=== PATIENT | female | born 1985 | race Caucasian/White ===

== ENCOUNTER 2018-11-23 17:23 | Emergency (ER) | payer MEDICAID ==
[~2018-11-23] VITALS: Ht 165.1 cm; Wt 63.6 kg
[~2018-11-23 17:23] MED LIST: FAMO-115 PO; FURO40TA4 PO; NO HOME MEDS; NORCO10T PO; ZOF4T PO
[2018-11-23] MEDS ORDERED: diphenhydrAMINE 50 mg/ml inj IV ONE (18:15)
[2018-11-23] MEDS ORDERED: normal saline 1000ML IV soln IVB ONE ×2 (18:15)
[2018-11-23] MEDS ORDERED: proCHLORperazine 10 MG/2 ml inj IV ONE (18:15)
[2018-11-23 18:37] LABS: BASOPHILS # (AUTO) 0.1 X10'3 (0-0.2); BASOPHILS % (AUTO) 1.4 % (0-1); EOSINOPHILS # (AUTO) 0.2 X10'3 (0-0.9); EOSINOPHILS % (AUTO) 2.5 % (0-6); HEMATOCRIT 34.5 % (35.0-45.0); HEMOGLOBIN 11.5 g/dl (12.0-16.0); LYMPHOCYTES # (AUTO) 0.8 X10'3 (1.1-4.8); LYMPHOCYTES % (AUTO) 13.1 % (21-51); MEAN CORPUSCULAR HEMOGLOBIN 30.3 PG (27.0-31.0); MEAN CORPUSCULAR HGB CONC 33.4 g/dL (33.0-36.5); MEAN CORPUSCULAR VOLUME 90.6 FL (78-98); MEAN PLATELET VOLUME 7.4 FL (7.4-10.4); MONOCYTES # (AUTO) 0.8 X10'3 (0-0.9); NEUTROPHILS # (AUTO) 4.3 X10'3 (1.8-7.7); PLATELET COUNT 235 X10'3 (140-440); RED BLOOD COUNT 3.81 X10'6 (4.20-5.60); RED CELL DISTRIBUTION WIDTH 12.9 % (11.5-14.5); WHITE BLOOD COUNT 6.1 X10'3 (4.5-11.0)
[2018-11-23 18:49] LABS: ALANINE AMINOTRANSFERASE 18 U/L (12-78); ALBUMIN 2.5 G/DL (3.4-5.0); ALBUMIN/GLOBULIN RATIO 0.6 (1.1-1.5); ALKALINE PHOSPHATASE 86 IU/L (46-116); ANION GAP 10 (8-16); ASPARTATE AMINO TRANSFERASE 15 U/L (10-37); BILIRUBIN,TOTAL 0.3 MG/DL (0.1-1.0); BLOOD UREA NITROGEN 9 MG/DL (7-18); BUN/CREATININE RATIO 7.1 (6.6-38.0); CALCIUM 8.1 MG/DL (8.5-10.1); CHLORIDE 102 MMOL/L (99-107); CREATININE 1.27 MG/DL (0.40-0.90); GLUCOSE 136 MG/DL (70-104); POTASSIUM 3.4 MMOL/L (3.5-5.1); SODIUM 135 MMOL/L (135-145); TOTAL CARBON DIOXIDE 22.8 MMOL/L (24-32); TOTAL PROTEIN 6.7 G/DL (6.4-8.2); eGFR 49 ML/MIN
[2018-11-23 19:49] VITALS: BP 115/59
== END 2018-11-23 19:54 | disposition home or self-care (01) ==
LOC: ER 17:30
DX: G43.909 Migraine, unspecified, not intractable, without status migrainosus (principal); R11.10 Vomiting, unspecified; R50.9 Fever, unspecified; N18.9 Chronic kidney disease, unspecified; F12.90 Cannabis use, unspecified, uncomplicated; Z79.899 Other long term (current) drug therapy; Z87.448 Personal history of other diseases of urinary system; Z90.49 Acquired absence of other specified parts of digestive tract
CPT/HCPCS: 36415; 70450; 80053; 85025; 96361; 96374; 96375; 99284; J0780; J1200; J7030; J7050

== ENCOUNTER 2018-12-02 08:58 | Emergency (ER) | payer MEDICAID ==
[~2018-12-02] VITALS: Ht 162.6 cm; Wt 66.2 kg
[2018-12-02 08:59] VITALS: BP 138/91
[2018-12-02] MEDS ORDERED: AMOX-580 PO (10:07)
[2018-12-02] MEDS ORDERED: BUTA-281 PO (10:07)
== END 2018-12-02 10:25 | disposition home or self-care (01) ==
LOC: ER 08:59
DX: R51 Headache (principal); R11.0 Nausea; H92.01 Otalgia, right ear; N18.9 Chronic kidney disease, unspecified; F12.90 Cannabis use, unspecified, uncomplicated; Z90.49 Acquired absence of other specified parts of digestive tract; Z98.890 Other specified postprocedural states; Z79.899 Other long term (current) drug therapy
CPT/HCPCS: 99283

== ENCOUNTER 2019-09-06 10:26 | Emergency (ER) | payer MEDICAID ==
[~2019-09-06] VITALS: Ht 162.6 cm; Wt 64.2 kg
[~2019-09-06 10:26] MED LIST changes: +BUTA-281 PO
[2019-09-06] MEDS ORDERED: ACYC-202 PO (11:28)
[2019-09-06] MEDS ORDERED: NYST1000 PO (11:28)
[2019-09-06 11:37] VITALS: BP 127/83
== END 2019-09-06 11:35 | disposition home or self-care (01) ==
LOC: ER 10:27
DX: K12.0 Recurrent oral aphthae (principal); N18.9 Chronic kidney disease, unspecified; F12.90 Cannabis use, unspecified, uncomplicated; Z90.49 Acquired absence of other specified parts of digestive tract
CPT/HCPCS: 99283

== ENCOUNTER 2019-10-27 07:57 | Emergency (ER) | payer MEDICAID ==
[~2019-10-27] VITALS: Ht 162.6 cm; Wt 59.1 kg
[2019-10-27 08:01] VITALS: BP 152/84
== END 2019-10-27 08:58 | disposition home or self-care (01) ==
LOC: ER 07:58
DX: K12.1 Other forms of stomatitis (principal); N18.9 Chronic kidney disease, unspecified; F31.9 Bipolar disorder, unspecified; F12.90 Cannabis use, unspecified, uncomplicated; Z90.49 Acquired absence of other specified parts of digestive tract; Z98.890 Other specified postprocedural states; Z79.899 Other long term (current) drug therapy
CPT/HCPCS: 99281

== ENCOUNTER 2020-07-16 09:26 | Emergency (ER) | payer MEDICARE, MEDICAID ==
[~2020-07-16] VITALS: Ht 162.6 cm; Wt 68.0 kg
[~2020-07-16 09:26] MED LIST changes: +LIDOcaine 1% W/epiNEPHrine 1:100,000 20ml vial ONE
[2020-07-16 09:28] VITALS: BP 164/87
[2020-07-16] MEDS ORDERED: bupivacaine 0.25%/epinephrine 1:200,000 inj (contains preserv. MDV) IJ ONE (10:05)
[2020-07-16] MEDS ORDERED: TETanus/Pertussis (Acell)/Diphther VAC/PF (Tdap-Adult) 0.5ml syringe IMVAC ONE (10:05)
[2020-07-16] MEDS ORDERED: BUPIVAcaine 0.5% W/EPI /PF 30ml vial IJ ONE (10:15)
== END 2020-07-16 11:39 | disposition home or self-care (01) ==
LOC: ER 09:27
DX: S51.812A Laceration without foreign body of left forearm, initial encounter (principal); F31.9 Bipolar disorder, unspecified; N18.9 Chronic kidney disease, unspecified; F12.90 Cannabis use, unspecified, uncomplicated; Z90.49 Acquired absence of other specified parts of digestive tract; Z98.890 Other specified postprocedural states; Z79.899 Other long term (current) drug therapy; W25.XXXA Contact with sharp glass, initial encounter; Y93.89 Activity, other specified; Y92.89 Other specified places as the place of occurrence of the external cause; Y99.8 Other external cause status
CPT/HCPCS: 12005; 73090; 90471; 90715; 99283

== ENCOUNTER 2020-07-30 12:50 | Emergency (ER) | payer MEDICARE, MEDICAID ==
[~2020-07-30] VITALS: Ht 162.6 cm; Wt 66.6 kg
[~2020-07-30 12:50] MED LIST changes: -LIDOcaine 1% W/epiNEPHrine 1:100,000 20ml vial ONE
[2020-07-30 13:01] VITALS: BP 150/93
== END 2020-07-30 13:40 | disposition home or self-care (01) ==
LOC: ER 12:51
DX: S51.812D Laceration without foreign body of left forearm, subsequent encounter (principal); N18.9 Chronic kidney disease, unspecified; F12.90 Cannabis use, unspecified, uncomplicated; Z48.02 Encounter for removal of sutures; X58.XXXD Exposure to other specified factors, subsequent encounter; Z79.899 Other long term (current) drug therapy; Z90.49 Acquired absence of other specified parts of digestive tract
CPT/HCPCS: 99281

== ENCOUNTER 2021-04-19 13:59 | Emergency (ER) | payer MEDICARE, MEDICAID ==
[~2021-04-19] VITALS: Ht 162.6 cm; Wt 61.0 kg
[2021-04-19 14:16] VITALS: BP 141/80
--- NOTE | 2021-04-19 17:13 | NUR ---
PATIENT HAS 1.5 CM LAC ON LEFT HAND AT THE WEB SPACE BETWEEN THE THUMB AND INDEX FINGER. WOUND IS BEING IRRIGATED/CLEANSED PER TECH.
[2021-04-22] MEDS ORDERED: LIDOcaine 1% 30ml preserv. free vial ONE (09:00)
== END 2021-04-19 18:35 | disposition home or self-care (01) ==
LOC: ER 14:05 → EEVIPCON 14:05 → ER 18:35
DX: S61.412A Laceration without foreign body of left hand, initial encounter (principal); N18.9 Chronic kidney disease, unspecified; F12.10 Cannabis abuse, uncomplicated; Y04.8XXA Assault by other bodily force, initial encounter; Y93.89 Activity, other specified; Y92.89 Other specified places as the place of occurrence of the external cause; Y99.8 Other external cause status
CPT/HCPCS: 12002; 99282; 99283

== ENCOUNTER 2021-05-03 09:50 | Emergency (ER) | payer MEDICARE, MEDICAID ==
[~2021-05-03] VITALS: Ht 162.6 cm; Wt 61.0 kg
[2021-05-03 10:11] VITALS: BP 133/87
== END 2021-05-03 15:18 | disposition left against medical advice (07) ==
LOC: ER 09:50
DX: Z48.00 Encounter for change or removal of nonsurgical wound dressing (principal); Z53.21 Procedure and treatment not carried out due to patient leaving prior to being seen by health care provider

== ENCOUNTER 2021-11-25 08:15 | Emergency (ER) | payer MEDICARE, MEDICAID ==
[~2021-11-25] VITALS: Ht 162.6 cm; Wt 61.4 kg
[2021-11-25 08:18] VITALS: BP 141/88
[2021-11-25] MEDS ORDERED: predniSONE 20 mg tablet PO ONE (10:30)
[2021-11-25] MEDS ORDERED: METH4TAB3 PO (10:31)
== END 2021-11-25 11:25 | disposition home or self-care (01) ==
LOC: ER 08:15
DX: L23.7 Allergic contact dermatitis due to plants, except food (principal); N18.9 Chronic kidney disease, unspecified; F31.9 Bipolar disorder, unspecified; Z79.899 Other long term (current) drug therapy
CPT/HCPCS: 99283; J7512

== ENCOUNTER 2023-08-14 10:55 | Emergency (ER) | payer MEDICARE, MEDICAID ==
[~2023-08-14] VITALS: Ht 163.8 cm; Wt 81.4 kg
[2023-08-14 10:55] VITALS: BP 176/94; PULSE 89; RESP 16; TEMP 98.9; O2SAT 99
[~2023-08-14 10:55] MED LIST changes: +BUTA-245 PO; -BUTA-281 PO; +METH4TAB3 PO
[2023-08-14] MEDS ORDERED: AMOX-580 PO (12:07)
[2023-08-14] MEDS ORDERED: IBUP-1986 PO (12:07)
[2023-08-14] MEDS: amox tr/potassium clavulanate 875/125mg TAB PO ONE (12:14)
== END 2023-08-14 12:25 | disposition home or self-care (01) ==
LOC: ER 10:56
DX: K04.7 Periapical abscess without sinus (principal); N18.9 Chronic kidney disease, unspecified; F31.9 Bipolar disorder, unspecified; Z90.49 Acquired absence of other specified parts of digestive tract
CPT/HCPCS: 99283

== ENCOUNTER 2024-04-23 06:24 | Inpatient (IN) | payer MEDICARE, MEDICAID ==
[2024-04-23] VITALS (11 sets, daily range): BP systolic 126–150; BP diastolic 62–80; PULSE 76–92; RESP 13–27; TEMP 97.7; O2SAT 94–100
[~2024-04-23] VITALS: Ht 162.6 cm; Wt 81.8 kg
[~2024-04-23 06:24] MED LIST changes: +IBUP-1986 PO
[2024-04-23 06:55] LABS: BASOPHILS # (AUTO) 0.1 X10'3 (0-0.2); BASOPHILS % (AUTO) 0.6 % (0-1); EOSINOPHILS # (AUTO) 0.2 X10'3 (0-0.9); EOSINOPHILS % (AUTO) 1.4 % (0-6); HEMATOCRIT 29.8 % (35.0-45.0); LYMPHOCYTES # (AUTO) 1.3 X10'3 (1.1-4.8); LYMPHOCYTES % (AUTO) 10.6 % (21-51); MEAN CORPUSCULAR HEMOGLOBIN 30.8 PG (27.0-31.0); MEAN CORPUSCULAR HGB CONC 33.4 g/dL (33.0-36.5); MEAN CORPUSCULAR VOLUME 92.2 FL (78-98); MEAN PLATELET VOLUME 8.9 FL (7.4-10.4); MONOCYTES # (AUTO) 0.5 X10'3 (0-0.9); MONOCYTES % (AUTO) 4.3 % (2-12); NEUTROPHILS # (AUTO) 10.5 X10'3 (1.8-7.7); NEUTROPHILS % (AUTO) 83.1 % (42-75); PLATELET COUNT 319 X10'3 (140-440); RED BLOOD COUNT 3.23 X10'6 (4.20-5.60); RED CELL DISTRIBUTION WIDTH 14.5 % (11.5-14.5); WHITE BLOOD COUNT 12.7 X10'3 (4.5-11.0)
[2024-04-23] MEDS: labetalol 20mg/4ml (5mg/ml) syringe IV ONE ×3 (07:12→08:39)
[2024-04-23 07:23] LABS: ALANINE AMINOTRANSFERASE 35 U/L (12-78); ALBUMIN 1.4 G/DL (3.4-5.0); ALBUMIN/GLOBULIN RATIO 0.3 (1.1-1.5); ALKALINE PHOSPHATASE 143 IU/L (46-116); ANION GAP 7 (8-16); BILIRUBIN,TOTAL 0.4 MG/DL (0.1-1.0); BLOOD UREA NITROGEN 35 MG/DL (7-18); BUN/CREATININE RATIO 18.8 (10.0-20.0); CALCIUM 8.2 MG/DL (8.5-10.1); CHLORIDE 101 MMOL/L (99-107); CREATININE 1.86 MG/DL (0.40-0.90); GLUCOSE 119 MG/DL (70-104); SODIUM 132 MMOL/L (135-145); TOTAL CARBON DIOXIDE 24.2 MMOL/L (24-32); TOTAL PROTEIN 6.1 G/DL (6.4-8.2); eCRCL 36 ML/MIN; eGFR 30 ML/MIN
[2024-04-23 07:24] LABS: ASPARTATE AMINO TRANSFERASE 45 U/L (10-37); POTASSIUM 5.3 MMOL/L (3.5-5.1); PRO BRAIN NATRIURETIC PEPTIDE 29836 PG/ML (0-125)
[2024-04-23] MEDS: CefTRIAXone 2gm/D5W 50ml BAG 50 ML IV ONE (07:41)
[2024-04-23] MEDS: midazolam 1 mg/ML 2ml injection IV ONE (07:45)
[2024-04-23 07:48] LABS: MAGNESIUM 2.2 MG/DL (1.5-2.4)
[2024-04-23 07:56] LABS: ABG BASE EXCESS -1.4 mmol/L (-2.0-3.0); ABG HCO3 21.6 mmol/L (21.0-28.0); ABG OXYGEN SATURATION 92.3 % (94.0-98.0); ABG PCO2 (T) 29.6 mmHg (32.0-45.0); ABG PH (T) 7.478 (7.350-7.450); ABG PO2 (T) 61.9 mmHg (83.0-108.0); ALLEN'S TEST POSITIVE; FCOHb 0.3 % (0.5-1.5); FHHb 7.7 % (0.0-5.0); FLOW 3 L/min; FMetHb 0.3 % (0.0-1.5); FO2Hb 91.7 % (94.0-98.0); MODE NASAL CANNULA; PATIENT TEMPERATURE 36.5; TOTAL HEMOGLOBIN 10.4 G/dl (12.0-16.0)
[2024-04-23] MEDS ORDERED: rocuronium 10mg/ml inj IV ONE (08:00)
[2024-04-23] MEDS: furosemide 10 MG/1 ML 10ml inj IV ONE (08:03)
[2024-04-23] MEDS ORDERED: nitroPRUSSIDE 0.2mg/mL in NS 100 ML IV SCH (08:25)
[2024-04-23] MEDS: morphine 4 MG/ML inj SYRINge IV ONE (08:32)
[2024-04-23] MEDS: nitroPRUSSIDE (NIPRIDE) (200MCG/ML) 100ML Drip IV SCH (08:36)
[2024-04-23] MEDS ORDERED: acetaminophen 325mg tablet PO PRN (08:40)
[2024-04-23] MEDS: LidoCAINE 2% Topical Jelly 11mL syringe (UROJET) TOP ONE (08:40)
[2024-04-23] MEDS ORDERED: magnesium hydroxide 30ml (MOM) UD suspension PO PRN (08:40)
[2024-04-23] MEDS: LABETALOL IV ONE (08:41)
[2024-04-23] MEDS: NORMAL SALINE IV ONE (08:41)
[2024-04-23] MEDS: heparin, porcine 5000 units/ml vial SQ SCH (17:03)
[2024-04-23] MEDS: metoprolol tartrate 50mg tablet PO SCH (18:22)
[2024-04-23] MEDS: nitroPRUSSIDE 0.2mg/mL in NS 100 ML IV SCH (18:30)
[2024-04-23] MEDS: acetaminophen 325mg tablet PO PRN (19:22)
[2024-04-24] VITALS (23 sets, daily range): BP systolic 136–186; BP diastolic 58–101; PULSE 76–92; RESP 14–22; O2SAT 91–97
[2024-04-24] MEDS: acetaminophen 325mg tablet PO PRN (02:07)
[2024-04-24] MEDS: nitroPRUSSIDE sod inj. 50 MG in dextrose 5%-water 248 ML IV SCH (03:45)
[2024-04-24 06:08] LABS: BASOPHILS # (AUTO) 0.1 X10'3 (0-0.2); BASOPHILS % (AUTO) 0.7 % (0-1); EOSINOPHILS # (AUTO) 0.2 X10'3 (0-0.9); EOSINOPHILS % (AUTO) 1.9 % (0-6); HEMATOCRIT 27.4 % (35.0-45.0); HEMOGLOBIN 9.4 g/dl (12.0-16.0); LYMPHOCYTES # (AUTO) 1.5 X10'3 (1.1-4.8); LYMPHOCYTES % (AUTO) 16.5 % (21-51); MEAN CORPUSCULAR HGB CONC 34.5 g/dL (33.0-36.5); MEAN CORPUSCULAR VOLUME 92.6 FL (78-98); MEAN PLATELET VOLUME 9.2 FL (7.4-10.4); MONOCYTES # (AUTO) 0.5 X10'3 (0-0.9); NEUTROPHILS # (AUTO) 7.1 X10'3 (1.8-7.7); NEUTROPHILS % (AUTO) 75.9 % (42-75); PLATELET COUNT 272 X10'3 (140-440); RED BLOOD COUNT 2.95 X10'6 (4.20-5.60); RED CELL DISTRIBUTION WIDTH 14.3 % (11.5-14.5); WHITE BLOOD COUNT 9.3 X10'3 (4.5-11.0)
[2024-04-24 06:27] LABS: ALANINE AMINOTRANSFERASE 49 U/L (12-78); ALBUMIN 1.2 G/DL (3.4-5.0); ALBUMIN/GLOBULIN RATIO 0.3 (1.1-1.5); ALKALINE PHOSPHATASE 110 IU/L (46-116); ANION GAP 8 (8-16); ASPARTATE AMINO TRANSFERASE 50 U/L (10-37); BILIRUBIN,TOTAL 0.3 MG/DL (0.1-1.0); BLOOD UREA NITROGEN 32 MG/DL (7-18); BUN/CREATININE RATIO 16.4 (10.0-20.0); CALCIUM 7.7 MG/DL (8.5-10.1); CHLORIDE 103 MMOL/L (99-107); CREATININE 1.95 MG/DL (0.40-0.90); GLUCOSE 112 MG/DL (70-104); POTASSIUM 4.3 MMOL/L (3.5-5.1); SODIUM 138 MMOL/L (135-145); TOTAL CARBON DIOXIDE 27.4 MMOL/L (24-32); TOTAL PROTEIN 5.1 G/DL (6.4-8.2); eCRCL 34 ML/MIN; eGFR 29 ML/MIN
[2024-04-24] MEDS ORDERED: PREN1TAB22 PO (08:05)
[2024-04-24] MEDS ORDERED: NIFE-34 PO (08:05)
[2024-04-24] MEDS ORDERED: DOCU-391 PO (08:05)
[2024-04-24] MEDS ORDERED: HYDR-3972 PO (08:05)
[2024-04-24] MEDS ORDERED: LABE100T8 PO (08:05)
[2024-04-24] MEDS: metoprolol tartrate 50mg tablet PO SCH (08:06)
[2024-04-24] MEDS: amLODIPine 5mg tablet PO SCH (08:06)
[2024-04-24 09:30] LABS: PRO BRAIN NATRIURETIC PEPTIDE 21047 PG/ML (0-125)
[2024-04-24] MEDS: metoprolol tartrate 50mg tablet PO ONE (11:30)
[2024-04-24] MEDS: pantoprazole 40mg Tablet.DR PO SCH (11:30)
[2024-04-24] MEDS: furosemide 40mg tablet PO SCH (11:31)
[2024-04-24] MEDS: hydrALAZINE 25 MG tablet PO SCH (11:31)
[2024-04-24] MEDS ORDERED: magnesium sulf-water 2g/50mL 50 ML IV SCH (13:10)
[2024-04-24] MEDS: sacubitril/valsartan 24mg-26mg tablet PO SCH (15:16)
[2024-04-24] MEDS ORDERED: nitroPRUSSIDE sod inj. 50 MG in dextrose 5%-water 248 ML IV SCH (18:20)
[2024-04-24] MEDS: nitroPRUSSIDE 0.2mg/mL in NS 100 ML IV SCH ×2 (18:33→22:59)
[2024-04-24] MEDS: metoprolol succinate 25mg (24-HOUR) SR. Tablet PO SCH (21:48)
[2024-04-24] MEDS: sacubitril/valsartan 24mg-26mg tablet PO ONE (21:49)
[2024-04-24] MEDS: ondansetron/PF 4mg/2ml inj IV PRN (21:59)
[2024-04-24] MEDS: morphine 2 MG/ML inj. syringe IV PRN (21:59)
[2024-04-25] VITALS (23 sets, daily range): BP systolic 144–198; BP diastolic 68–105; PULSE 79–101; RESP 12–22; O2SAT 91–98
[2024-04-25 01:53] LABS: BASOPHILS # (AUTO) 0.1 X10'3 (0-0.2); BASOPHILS % (AUTO) 1.1 % (0-1); EOSINOPHILS # (AUTO) 0.2 X10'3 (0-0.9); EOSINOPHILS % (AUTO) 2.3 % (0-6); HEMATOCRIT 30.2 % (35.0-45.0); HEMOGLOBIN 10.3 g/dl (12.0-16.0); LYMPHOCYTES # (AUTO) 1.9 X10'3 (1.1-4.8); LYMPHOCYTES % (AUTO) 17.9 % (21-51); MEAN CORPUSCULAR HEMOGLOBIN 31.2 PG (27.0-31.0); MEAN CORPUSCULAR VOLUME 91.7 FL (78-98); MEAN PLATELET VOLUME 7.8 FL (7.4-10.4); MONOCYTES # (AUTO) 0.7 X10'3 (0-0.9); MONOCYTES % (AUTO) 6.5 % (2-12); NEUTROPHILS # (AUTO) 7.5 X10'3 (1.8-7.7); NEUTROPHILS % (AUTO) 72.2 % (42-75); PLATELET COUNT 310 X10'3 (140-440); RED BLOOD COUNT 3.29 X10'6 (4.20-5.60); RED CELL DISTRIBUTION WIDTH 14.5 % (11.5-14.5); WHITE BLOOD COUNT 10.4 X10'3 (4.5-11.0)
[2024-04-25 02:12] LABS: ALANINE AMINOTRANSFERASE 48 U/L (12-78); ALBUMIN 1.4 G/DL (3.4-5.0); ALBUMIN/GLOBULIN RATIO 0.3 (1.1-1.5); ALKALINE PHOSPHATASE 124 IU/L (46-116); ANION GAP 6 (8-16); ASPARTATE AMINO TRANSFERASE 32 U/L (10-37); BILIRUBIN,TOTAL 0.4 MG/DL (0.1-1.0); BLOOD UREA NITROGEN 30 MG/DL (7-18); BUN/CREATININE RATIO 14.3 (10.0-20.0); CALCIUM 7.7 MG/DL (8.5-10.1); CHLORIDE 104 MMOL/L (99-107); GLUCOSE 125 MG/DL (70-104); POTASSIUM 3.8 MMOL/L (3.5-5.1); SODIUM 138 MMOL/L (135-145); TOTAL CARBON DIOXIDE 27.9 MMOL/L (24-32); TOTAL PROTEIN 5.6 G/DL (6.4-8.2); eCRCL 32 ML/MIN; eGFR 27 ML/MIN
[2024-04-25] MEDS: morphine 4 MG/ML inj SYRINge IV PRN (03:44)
[2024-04-25] MEDS: magnesium sulf-water 2g/50mL 50 ML IV ONE (07:55)
[2024-04-25] MEDS ORDERED: metoprolol succinate 25mg (24-HOUR) SR. Tablet PO SCH (21:00)
== END 2024-04-25 23:27 | disposition short-term general hospital (02) | DRG 776 ==
LOC: ER 06:25 → ED HOLD 08:48 → CICU 2S 16:20
PROVIDERS: ADMIT Internal Medicine Critical Care Medicine; ATTEND Internal Medicine Critical Care Medicine
DX: O10 Pre-existing hypertension complicating pregnancy, childbirth and the puerperium (principal); J96.01 Acute respiratory failure with hypoxia; I21.A1 Myocardial infarction type 2; I50.21 Acute systolic (congestive) heart failure; O99.325 Drug use complicating the puerperium; I16.1 Hypertensive emergency; I13.0 Hypertensive heart and chronic kidney disease with heart failure and stage 1 through stage 4 chronic kidney disease, or unspecified chronic kidney disease; O99.43 Diseases of the circulatory system complicating the puerperium; E87.1 Hypo-osmolality and hyponatremia; N18.4 Chronic kidney disease, stage 4 (severe); J98.4 Other disorders of lung; O99.345 Other mental disorders complicating the puerperium; O16.5 Unspecified maternal hypertension, complicating the puerperium; F12.90 Cannabis use, unspecified, uncomplicated; O90.81 Anemia of the puerperium; O99.53 Diseases of the respiratory system complicating the puerperium; D64.89 Other specified anemias; O99.285 Endocrine, nutritional and metabolic diseases complicating the puerperium; F31.9 Bipolar disorder, unspecified; E87.5 Hyperkalemia; E83.51 Hypocalcemia; Z90.49 Acquired absence of other specified parts of digestive tract
CPT/HCPCS: 36415; 36600; 71045; 80053; 82803; 83735; 83880; 84145; 84484; 85018; 85025; 87081; 87502; 87503; 93005; 93306; 93308; 94660; 94760; 96365; 96375; 99285; A4615; A6250; A6258; A6449; C1758; G0378; J0696; J1644; J1940; J2250; J2270; J2405; J3490; J7050

== ENCOUNTER 2024-06-17 20:54 | Emergency (ER) | payer MEDICARE, MEDICAID ==
[~2024-06-17] VITALS: Ht 162.6 cm; Wt 68.2 kg
[~2024-06-17 20:54] MED LIST changes: -BUTA-245 PO; +DOCU-391 PO; -FAMO-115 PO; -FURO40TA4 PO; +HYDR-3972 PO; -IBUP-1986 PO; +LABE100T8 PO; -METH4TAB3 PO; +NIFE-34 PO; -NO HOME MEDS; -NORCO10T PO; +PREN1TAB22 PO; -ZOF4T PO
[2024-06-17 21:36] LABS: BASOPHILS # (AUTO) 0.1 X10'3 (0-0.2); BASOPHILS % (AUTO) 0.9 % (0-1); EOSINOPHILS % (AUTO) 0.2 % (0-6); HEMATOCRIT 27.7 % (35.0-45.0); HEMOGLOBIN 8.9 g/dl (12.0-16.0); LYMPHOCYTES # (AUTO) 1.2 X10'3 (1.1-4.8); LYMPHOCYTES % (AUTO) 17.2 % (21-51); MEAN CORPUSCULAR HEMOGLOBIN 27.5 PG (27.0-31.0); MEAN CORPUSCULAR HGB CONC 32.1 g/dL (33.0-36.5); MEAN CORPUSCULAR VOLUME 85.8 FL (78-98); MEAN PLATELET VOLUME 7.7 FL (7.4-10.4); MONOCYTES # (AUTO) 0.4 X10'3 (0-0.9); MONOCYTES % (AUTO) 6.1 % (2-12); NEUTROPHILS # (AUTO) 5.1 X10'3 (1.8-7.7); NEUTROPHILS % (AUTO) 75.6 % (42-75); PLATELET COUNT 359 X10'3 (140-440); RED BLOOD COUNT 3.23 X10'6 (4.20-5.60); RED CELL DISTRIBUTION WIDTH 16.1 % (11.5-14.5); WHITE BLOOD COUNT 6.8 X10'3 (4.5-11.0)
[2024-06-17 21:54] LABS: ALANINE AMINOTRANSFERASE 16 U/L (12-78); ALBUMIN 3.3 G/DL (3.4-5.0); ALBUMIN/GLOBULIN RATIO 0.8 (1.1-1.5); ALKALINE PHOSPHATASE 70 IU/L (46-116); ANION GAP 11 (8-16); ASPARTATE AMINO TRANSFERASE 15 U/L (10-37); BILIRUBIN,TOTAL 0.5 MG/DL (0.1-1.0); BLOOD UREA NITROGEN 17 MG/DL (7-18); BUN/CREATININE RATIO 8.9 (10.0-20.0); CHLORIDE 103 MMOL/L (99-107); CREATININE 1.91 MG/DL (0.40-0.90); GLUCOSE 104 MG/DL (70-104); POTASSIUM 3.4 MMOL/L (3.5-5.1); SODIUM 135 MMOL/L (135-145); TOTAL PROTEIN 7.4 G/DL (6.4-8.2); eCRCL 34 ML/MIN; eGFR 29 ML/MIN
[2024-06-17 22:01] LABS: PRO BRAIN NATRIURETIC PEPTIDE 3351 PG/ML (0-125)
[2024-06-17] MEDS: hydrALAZINE 25 MG tablet PO STA (22:26)
[2024-06-17] MEDS: LORazepam 0.5 MG tablet PO STA (22:27)
[2024-06-17] MEDS: potassium Cl 20 mEq SR tablet PO STA (22:27)
[2024-06-17 23:10] VITALS: BP 147/67; PULSE 96; RESP 15; O2SAT 98
[2024-06-17 23:58] VITALS: TEMP 98.3
== END 2024-06-18 00:46 | disposition home or self-care (01) ==
LOC: ER 20:55
DX: I12.9 Hypertensive chronic kidney disease with stage 1 through stage 4 chronic kidney disease, or unspecified chronic kidney disease (principal); N18.9 Chronic kidney disease, unspecified; F12.90 Cannabis use, unspecified, uncomplicated; F31.9 Bipolar disorder, unspecified; Z88.8 Allergy status to other drugs, medicaments and biological substances; Z90.49 Acquired absence of other specified parts of digestive tract; Z79.899 Other long term (current) drug therapy
CPT/HCPCS: 36415; 71045; 80053; 83880; 84484; 85025; 93005; 99285

== ENCOUNTER 2024-06-24 15:22 | Inpatient (IN) | payer MEDICARE, MEDICAID ==
[~2024-06-24] VITALS: Ht 162.6 cm; Wt 68.2 kg
[2024-06-24 16:56] LABS: BASOPHILS # (AUTO) 0.1 X10'3 (0-0.2); BASOPHILS % (AUTO) 0.7 % (0-1); EOSINOPHILS % (AUTO) 0.2 % (0-6); HEMATOCRIT 30.9 % (35.0-45.0); HEMOGLOBIN 10.4 g/dl (12.0-16.0); LYMPHOCYTES # (AUTO) 1.2 X10'3 (1.1-4.8); LYMPHOCYTES % (AUTO) 11.8 % (21-51); MEAN CORPUSCULAR HEMOGLOBIN 28.4 PG (27.0-31.0); MEAN CORPUSCULAR HGB CONC 33.6 g/dL (33.0-36.5); MEAN CORPUSCULAR VOLUME 84.6 FL (78-98); MEAN PLATELET VOLUME 7.4 FL (7.4-10.4); MONOCYTES # (AUTO) 0.4 X10'3 (0-0.9); MONOCYTES % (AUTO) 3.9 % (2-12); NEUTROPHILS # (AUTO) 8.3 X10'3 (1.8-7.7); NEUTROPHILS % (AUTO) 83.4 % (42-75); PLATELET COUNT 468 X10'3 (140-440); RED BLOOD COUNT 3.65 X10'6 (4.20-5.60); RED CELL DISTRIBUTION WIDTH 17.4 % (11.5-14.5)
[2024-06-24 17:06] LABS: ALANINE AMINOTRANSFERASE 15 U/L (12-78); ALBUMIN 3.5 G/DL (3.4-5.0); ALBUMIN/GLOBULIN RATIO 0.8 (1.1-1.5); ALKALINE PHOSPHATASE 85 IU/L (46-116); ANION GAP 11 (8-16); ASPARTATE AMINO TRANSFERASE 15 U/L (10-37); BILIRUBIN,TOTAL 0.4 MG/DL (0.1-1.0); BLOOD UREA NITROGEN 17 MG/DL (7-18); BUN/CREATININE RATIO 9.2 (10.0-20.0); CALCIUM 9.4 MG/DL (8.5-10.1); CHLORIDE 102 MMOL/L (99-107); CREATININE 1.84 MG/DL (0.40-0.90); GLUCOSE 103 MG/DL (70-104); SODIUM 135 MMOL/L (135-145); TOTAL CARBON DIOXIDE 21.7 MMOL/L (24-32); TOTAL PROTEIN 7.9 G/DL (6.4-8.2); eCRCL 36 ML/MIN; eGFR 31 ML/MIN
[2024-06-24 17:13] LABS: PRO BRAIN NATRIURETIC PEPTIDE 1615 PG/ML (0-125)
[2024-06-24] MEDS ORDERED: hyDRALAzine 10mg tablet PO SCH (21:30)
[2024-06-24] MEDS: hydrALAZINE 25 MG tablet PO SCH (23:27)
[2024-06-25] VITALS (7 sets, daily range): BP systolic 121–177; BP diastolic 67–89; PULSE 86–106; RESP 16–18; TEMP 96–98.3; O2SAT 96–100
[2024-06-25] MEDS ORDERED: magnesium hydroxide 30ml (MOM) UD suspension PO PRN
[2024-06-25] MEDS ORDERED: magnesium sulf-water 2g/50mL 50 ML IV PRN
[2024-06-25] MEDS ORDERED: magnesium Cl slow-release 64mg tablet PO PRN
[2024-06-25] MEDS ORDERED: acetaminophen 325mg tablet PO PRN
[2024-06-25] MEDS ORDERED: mag hydrox/Alum hydrox/simeth 30ml oral suspension PO PRN
[2024-06-25] MEDS ORDERED: potassium Cl 40MEQ/1/2NS 520ml 520 ML IV PRN
[2024-06-25] MEDS ORDERED: potassium Cl 20 mEq SR tablet PO PRN
[2024-06-25] MEDS ORDERED: ondansetron/PF 4mg/2ml inj IV PRN
[2024-06-25] MEDS ORDERED: magnesium sulf-water 4G/100mL 100 ML IV PRN
[2024-06-25] MEDS ORDERED: furosemide 10 MG/1 ML 10ml inj IV SCH (00:10)
[2024-06-25] MEDS: isosorbide mononitrate 30mg tab.SR.24H PO ONE (00:10)
[2024-06-25] MEDS: LORazepam 1 MG tablet PO ONE (01:21)
[2024-06-25] MEDS: NIFEdipine XL 30mg tablet PO ONE (01:22)
[2024-06-25 01:31] LABS: BILIRUBIN,URINE NEGATIVE (Neg); CLARITY,URINE CLEAR (Clear); COLOR,URINE YELLOW (Yellow); GLUCOSE, URINE NEGATIVE (Neg); KETONES,URINE NEGATIVE (Neg); LEUKOCYTE ESTERASE ,URINE NEGATIVE (Neg); NITRITES, URINE NEGATIVE (Neg); OCCULT BLOOD,URINE NEGATIVE (Neg); PROTEIN,URINE >=300 mg/dl (Neg); UROBILINOGEN,URINE 0.2 E.U/dL (0.2-1.0)
[2024-06-25 01:32] LABS: URINE HCG NEGATIVE (NEG)
[2024-06-25 01:44] LABS: UA COLLECTION TYPE CLN CATCH MIDSTREAM; URINE AMPHETAMINE SCREEN NEGATIVE (Neg); URINE BARBITUATE SCREEN NEGATIVE (Neg); URINE BENZODIAZEPINES SCREEN NEGATIVE (Neg); URINE CANNABINOID SCREEN POSITIVE (Neg); URINE COCAINE SCREEN NEGATIVE (Neg); URINE METHADONE SCREEN NEGATIVE (Neg); URINE OPIATE SCREEN NEGATIVE (Neg); URINE PHENCYCLIDINE SCREEN NEGATIVE (Neg)
[2024-06-25 01:46] LABS: BACTERIA,URINE FEW /HPF (Neg); RBC,URINE NONE SEEN /HPF (0-2); WBC,URINE 0-4 /HPF (0-4)
[2024-06-25 01:47] LABS: CELLULAR CAST 0-4 /LPF (NEGATIVE); MUCUS STRANDS NONE SEEN /LPF (Neg); SQUAMOUS EPITHELIAL CELL,UR MODERATE /LPF (FEW)
[2024-06-25] MEDS: LORazepam 0.5 MG tablet PO PRN (02:37)
[2024-06-25] MEDS ORDERED: NIFE-128 PO (03:49)
[2024-06-25] MEDS ORDERED: RIVA20TA PO (03:49)
[2024-06-25] MEDS ORDERED: NIFE60TA2 PO (03:49)
[2024-06-25] MEDS ORDERED: HYDR100T12 PO (03:49)
[2024-06-25] MEDS ORDERED: ISOS120T13 PO (03:49)
[2024-06-25] MEDS ORDERED: LORazepam 0.5 MG tablet PO PRN (06:15)
[2024-06-25] MEDS ORDERED: rivaroxaban 15mg tablet PO SCH (07:30)
[2024-06-25 07:37] LABS: BASOPHILS # (AUTO) 0.1 X10'3 (0-0.2); EOSINOPHILS # (AUTO) 0.1 X10'3 (0-0.9); EOSINOPHILS % (AUTO) 1.5 % (0-6); HEMOGLOBIN 9.3 g/dl (12.0-16.0); LYMPHOCYTES # (AUTO) 1.7 X10'3 (1.1-4.8); LYMPHOCYTES % (AUTO) 22.1 % (21-51); MEAN CORPUSCULAR HGB CONC 33.4 g/dL (33.0-36.5); MONOCYTES # (AUTO) 0.5 X10'3 (0-0.9); MONOCYTES % (AUTO) 7.2 % (2-12); NEUTROPHILS # (AUTO) 5.1 X10'3 (1.8-7.7); NEUTROPHILS % (AUTO) 68.2 % (42-75); PLATELET COUNT 365 X10'3 (140-440); RED BLOOD COUNT 3.33 X10'6 (4.20-5.60); RED CELL DISTRIBUTION WIDTH 17.5 % (11.5-14.5); WHITE BLOOD COUNT 7.5 X10'3 (4.5-11.0)
[2024-06-25] MEDS ORDERED: isosorbide mononitrate 30mg tab.SR.24H PO ONE (08:00)
[2024-06-25] MEDS: docusate sod 100mg capsule PO SCH (08:00)
[2024-06-25] MEDS: K and/or MAG REPLACEMENT MC SCH (08:00)
[2024-06-25 08:17] LABS: ALANINE AMINOTRANSFERASE 14 U/L (12-78); ALBUMIN/GLOBULIN RATIO 0.7 (1.1-1.5); ALKALINE PHOSPHATASE 70 IU/L (46-116); ANION GAP 11 (8-16); ASPARTATE AMINO TRANSFERASE 13 U/L (10-37); BILIRUBIN,TOTAL 0.5 MG/DL (0.1-1.0); BLOOD UREA NITROGEN 15 MG/DL (7-18); BUN/CREATININE RATIO 8.4 (10.0-20.0); CALCIUM 8.8 MG/DL (8.5-10.1); CHLORIDE 101 MMOL/L (99-107); CHOL/HDL RATIO 5.2 (0.00-4.99); CHOLESTEROL 251 MG/DL (0-200); CREATININE 1.79 MG/DL (0.40-0.90); GLUCOSE 103 MG/DL (70-104); HDL CHOLESTEROL 48 MG/DL (35-60); LDL CHOLESTEROL 165 MG/DL (50-100); MAGNESIUM 1.9 MG/DL (1.5-2.4); POTASSIUM 3.8 MMOL/L (3.5-5.1); SODIUM 135 MMOL/L (135-145); THYROID STIMULATING HORMONE 3.27 ulU/ml (0.34-4.50); TOTAL CARBON DIOXIDE 23.4 MMOL/L (24-32); TOTAL PROTEIN 7.1 G/DL (6.4-8.2); TRIGLYCERIDES 192 MG/DL (20-135); eCRCL 37 ML/MIN; eGFR 32 ML/MIN
[2024-06-25] MEDS: hydrALAZINE 25 MG tablet PO SCH (08:38)
[2024-06-25] MEDS: NIFEdipine XL 30mg tablet PO SCH (08:39)
[2024-06-25] MEDS: furosemide 10 MG/1 ML 10ml inj IV SCH (08:41)
[2024-06-25] MEDS: isosorbide mononitrate 30mg tab.SR.24H PO SCH (08:54)
[2024-06-25 10:18] LABS: HEMOGLOBIN A1C 5.1 % (4.5-6.2)
[2024-06-25] MEDS: rivaroxaban 20mg tablet PO SCH (20:05)
[2024-06-26] VITALS (7 sets, daily range): BP systolic 143–162; BP diastolic 63–88; PULSE 89–100; RESP 16–18; TEMP 97–98.3; O2SAT 96–100
[2024-06-26 06:37] LABS: BASOPHILS # (AUTO) 0.1 X10'3 (0-0.2); BASOPHILS % (AUTO) 1.2 % (0-1); EOSINOPHILS # (AUTO) 0.2 X10'3 (0-0.9); HEMOGLOBIN 9.6 g/dl (12.0-16.0); LYMPHOCYTES # (AUTO) 2.2 X10'3 (1.1-4.8); MEAN CORPUSCULAR HEMOGLOBIN 27.9 PG (27.0-31.0); MEAN CORPUSCULAR VOLUME 84.7 FL (78-98); MEAN PLATELET VOLUME 7.1 FL (7.4-10.4); MONOCYTES # (AUTO) 0.5 X10'3 (0-0.9); MONOCYTES % (AUTO) 8.3 % (2-12); NEUTROPHILS # (AUTO) 3.4 X10'3 (1.8-7.7); NEUTROPHILS % (AUTO) 53.5 % (42-75); PLATELET COUNT 380 X10'3 (140-440); RED BLOOD COUNT 3.42 X10'6 (4.20-5.60); RED CELL DISTRIBUTION WIDTH 17.8 % (11.5-14.5); WHITE BLOOD COUNT 6.4 X10'3 (4.5-11.0)
[2024-06-26 07:38] LABS: ALANINE AMINOTRANSFERASE 15 U/L (12-78); ALBUMIN/GLOBULIN RATIO 0.8 (1.1-1.5); ALKALINE PHOSPHATASE 70 IU/L (46-116); ANION GAP 10 (8-16); ASPARTATE AMINO TRANSFERASE 11 U/L (10-37); BILIRUBIN,TOTAL 0.3 MG/DL (0.1-1.0); BLOOD UREA NITROGEN 24 MG/DL (7-18); BUN/CREATININE RATIO 12.1 (10.0-20.0); CALCIUM 8.9 MG/DL (8.5-10.1); CHLORIDE 104 MMOL/L (99-107); CREATININE 1.98 MG/DL (0.40-0.90); GLUCOSE 93 MG/DL (70-104); POTASSIUM 3.8 MMOL/L (3.5-5.1); SODIUM 139 MMOL/L (135-145); TOTAL PROTEIN 6.9 G/DL (6.4-8.2); eCRCL 33 ML/MIN; eGFR 28 ML/MIN
[2024-06-26] MEDS ORDERED: furosemide 20 MG/2 ML vial IV SCH (12:23)
[2024-06-26] MEDS: LORazepam 0.5 MG tablet PO PRN (15:44)
[2024-06-26] MEDS: isosorbide dinitrate 30mg tablet PO SCH (21:40)
[2024-06-26] MEDS: LORazepam 1 MG tablet PO ONE (22:42)
[2024-06-27 02:00] VITALS: BP 144/78; PULSE 90; RESP 16; TEMP 98.4; O2SAT 96
[2024-06-27 06:37] LABS: BASOPHILS # (AUTO) 0.1 X10'3 (0-0.2); BASOPHILS % (AUTO) 1.3 % (0-1); EOSINOPHILS # (AUTO) 0.1 X10'3 (0-0.9); EOSINOPHILS % (AUTO) 2.4 % (0-6); HEMATOCRIT 28.6 % (35.0-45.0); HEMOGLOBIN 9.4 g/dl (12.0-16.0); LYMPHOCYTES # (AUTO) 1.8 X10'3 (1.1-4.8); LYMPHOCYTES % (AUTO) 28.4 % (21-51); MEAN CORPUSCULAR HEMOGLOBIN 27.9 PG (27.0-31.0); MEAN CORPUSCULAR VOLUME 84.5 FL (78-98); MONOCYTES # (AUTO) 0.6 X10'3 (0-0.9); MONOCYTES % (AUTO) 9.6 % (2-12); NEUTROPHILS # (AUTO) 3.7 X10'3 (1.8-7.7); NEUTROPHILS % (AUTO) 58.3 % (42-75); PLATELET COUNT 352 X10'3 (140-440); RED BLOOD COUNT 3.38 X10'6 (4.20-5.60); RED CELL DISTRIBUTION WIDTH 17.2 % (11.5-14.5); WHITE BLOOD COUNT 6.3 X10'3 (4.5-11.0)
[2024-06-27 06:49] LABS: ALANINE AMINOTRANSFERASE 12 U/L (12-78); ALBUMIN 2.9 G/DL (3.4-5.0); ALBUMIN/GLOBULIN RATIO 0.8 (1.1-1.5); ALKALINE PHOSPHATASE 66 IU/L (46-116); ANION GAP 9 (8-16); ASPARTATE AMINO TRANSFERASE 14 U/L (10-37); BILIRUBIN,TOTAL 0.4 MG/DL (0.1-1.0); BLOOD UREA NITROGEN 24 MG/DL (7-18); BUN/CREATININE RATIO 11.5 (10.0-20.0); CALCIUM 8.7 MG/DL (8.5-10.1); CHLORIDE 102 MMOL/L (99-107); CREATININE 2.08 MG/DL (0.40-0.90); GLUCOSE 93 MG/DL (70-104); MAGNESIUM 1.7 MG/DL (1.5-2.4); POTASSIUM 3.4 MMOL/L (3.5-5.1); SODIUM 135 MMOL/L (135-145); TOTAL CARBON DIOXIDE 23.7 MMOL/L (24-32); TOTAL PROTEIN 6.7 G/DL (6.4-8.2); eCRCL 32 ML/MIN; eGFR 27 ML/MIN
[2024-06-27 07:00] VITALS: BP 142/87; PULSE 81; RESP 17; TEMP 96.7; O2SAT 99
[2024-06-27] MEDS: potassium Cl 20 mEq SR tablet PO PRN (09:02)
[2024-06-27] MEDS ORDERED: LORA-269 PO (10:25)
[2024-06-27] MEDS ORDERED: ISOS30TA10 PO (10:37)
[2024-06-27 11:00] VITALS: BP 130/70; PULSE 100; RESP 18; TEMP 98.2; O2SAT 96
[2024-06-27 12:15] VITALS: BP_SYST 130; PULSE 100
[2024-06-27] MEDS: LORazepam 0.5 MG tablet PO PRN (14:42)
== END 2024-06-27 15:40 | disposition home health service (06) | DRG 291 ==
LOC: ER 15:23 → ED HOLD 06-25 00:01 → PCU 3S 06-25 08:05
PROVIDERS: ADMIT Internal Medicine Sleep Medicine; ATTEND Internal Medicine
DX: I13.0 Hypertensive heart and chronic kidney disease with heart failure and stage 1 through stage 4 chronic kidney disease, or unspecified chronic kidney disease (principal); I50.23 Acute on chronic systolic (congestive) heart failure; N17.9 Acute kidney failure, unspecified; I35.1 Nonrheumatic aortic (valve) insufficiency; N18.32 Chronic kidney disease, stage 3b; I20.9 Angina pectoris, unspecified; E78.5 Hyperlipidemia, unspecified; D64.9 Anemia, unspecified; Z79.01 Long term (current) use of anticoagulants; Z79.899 Other long term (current) drug therapy; Z90.49 Acquired absence of other specified parts of digestive tract; Z86.711 Personal history of pulmonary embolism; Z88.8 Allergy status to other drugs, medicaments and biological substances
CPT/HCPCS: 36415; 71045; 80053; 80061; 80305; 81001; 81025; 83036; 83735; 83880; 84443; 84484; 85025; 85651; 87081; 93005; 93308; 99285; A6258; C1758; G0378; J1940

== ENCOUNTER 2024-07-06 10:47 | Emergency (ER) | payer MEDICARE, MEDICAID ==
[~2024-07-06] VITALS: Ht 162.6 cm; Wt 68.2 kg
[~2024-07-06 10:47] MED LIST changes: -DOCU-391 PO; -HYDR-3972 PO; +HYDR100T12 PO; +ISOS30TA10 PO; -LABE100T8 PO; +LORA-269 PO; +NIFE-128 PO; -NIFE-34 PO; +NIFE60TA2 PO; +RIVA20TA PO
[2024-07-06 11:00] VITALS: TEMP 98.2
[2024-07-06 12:07] LABS: BASOPHILS # (AUTO) 0.1 X10'3 (0-0.2); BASOPHILS % (AUTO) 0.6 % (0-1); EOSINOPHILS % (AUTO) 0.4 % (0-6); HEMATOCRIT 34.6 % (35.0-45.0); HEMOGLOBIN 11.1 g/dl (12.0-16.0); LYMPHOCYTES # (AUTO) 1.3 X10'3 (1.1-4.8); LYMPHOCYTES % (AUTO) 14.7 % (21-51); MEAN CORPUSCULAR HEMOGLOBIN 26.9 PG (27.0-31.0); MEAN CORPUSCULAR VOLUME 84.1 FL (78-98); MEAN PLATELET VOLUME 7.5 FL (7.4-10.4); MONOCYTES # (AUTO) 0.4 X10'3 (0-0.9); MONOCYTES % (AUTO) 4.9 % (2-12); NEUTROPHILS # (AUTO) 7.2 X10'3 (1.8-7.7); NEUTROPHILS % (AUTO) 79.4 % (42-75); PLATELET COUNT 410 X10'3 (140-440); RED BLOOD COUNT 4.12 X10'6 (4.20-5.60); RED CELL DISTRIBUTION WIDTH 17.3 % (11.5-14.5); WHITE BLOOD COUNT 9.1 X10'3 (4.5-11.0)
[2024-07-06] MEDS: LORazepam 1 MG tablet PO ONE ×2 (12:10→12:41)
[2024-07-06 12:16] LABS: ALANINE AMINOTRANSFERASE 17 U/L (12-78); ALBUMIN 3.7 G/DL (3.4-5.0); ALBUMIN/GLOBULIN RATIO 0.9 (1.1-1.5); ALKALINE PHOSPHATASE 79 IU/L (46-116); ANION GAP 14 (8-16); ASPARTATE AMINO TRANSFERASE 13 U/L (10-37); BILIRUBIN,TOTAL 0.3 MG/DL (0.1-1.0); BLOOD UREA NITROGEN 16 MG/DL (7-18); BUN/CREATININE RATIO 9.8 (10.0-20.0); CALCIUM 9.2 MG/DL (8.5-10.1); CHLORIDE 105 MMOL/L (99-107); CREATININE 1.64 MG/DL (0.40-0.90); GLUCOSE 104 MG/DL (70-104); POTASSIUM 3.5 MMOL/L (3.5-5.1); SODIUM 138 MMOL/L (135-145); TOTAL CARBON DIOXIDE 18.8 MMOL/L (24-32); TOTAL PROTEIN 7.7 G/DL (6.4-8.2); eCRCL 40 ML/MIN; eGFR 35 ML/MIN
[2024-07-06 12:24] LABS: PRO BRAIN NATRIURETIC PEPTIDE 2759 PG/ML (0-125)
[2024-07-06] MEDS ORDERED: LORA-269 PO ×2 (15:39→16:20)
[2024-07-06 16:15] VITALS: BP 149/86; PULSE 104; RESP 18; O2SAT 98
== END 2024-07-06 16:29 | disposition home or self-care (01) ==
LOC: ER 10:48
DX: R00.2 Palpitations (principal); F41.9 Anxiety disorder, unspecified; I50.22 Chronic systolic (congestive) heart failure; N18.9 Chronic kidney disease, unspecified; F31.9 Bipolar disorder, unspecified; F12.90 Cannabis use, unspecified, uncomplicated; Z88.8 Allergy status to other drugs, medicaments and biological substances; Z79.899 Other long term (current) drug therapy; Z98.890 Other specified postprocedural states; Z79.01 Long term (current) use of anticoagulants; Z90.49 Acquired absence of other specified parts of digestive tract
CPT/HCPCS: 36415; 71045; 80053; 83880; 84484; 85025; 93005; 99285

== ENCOUNTER 2024-08-03 02:16 | Emergency (ER) | payer MEDICARE, MEDICAID ==
[~2024-08-03] VITALS: Ht 162.6 cm; Wt 70.5 kg
[2024-08-03 03:10] LABS: BASOPHILS # (AUTO) 0.1 X10'3 (0-0.2); BASOPHILS % (AUTO) 0.8 % (0-1); EOSINOPHILS # (AUTO) 0.1 X10'3 (0-0.9); EOSINOPHILS % (AUTO) 1.1 % (0-6); LYMPHOCYTES # (AUTO) 1.2 X10'3 (1.1-4.8); LYMPHOCYTES % (AUTO) 11.4 % (21-51); MEAN CORPUSCULAR HEMOGLOBIN 27.1 PG (27.0-31.0); MEAN CORPUSCULAR VOLUME 84.5 FL (78-98); MEAN PLATELET VOLUME 7.4 FL (7.4-10.4); MONOCYTES # (AUTO) 0.8 X10'3 (0-0.9); MONOCYTES % (AUTO) 7.4 % (2-12); NEUTROPHILS # (AUTO) 8.7 X10'3 (1.8-7.7); NEUTROPHILS % (AUTO) 79.3 % (42-75); PLATELET COUNT 438 X10'3 (140-440); RED BLOOD COUNT 2.22 X10'6 (4.20-5.60); RED CELL DISTRIBUTION WIDTH 18.1 % (11.5-14.5); WHITE BLOOD COUNT 10.9 X10'3 (4.5-11.0)
[2024-08-03 03:20] LABS: HEMATOCRIT 18.8 % (35.0-45.0)
[2024-08-03 03:36] LABS: BLOOD UREA NITROGEN 39 MG/DL (7-18); BUN/CREATININE RATIO 19.7 (10.0-20.0); CREATININE 1.98 MG/DL (0.40-0.90); GLUCOSE 108 MG/DL (70-104); POTASSIUM 3.8 MMOL/L (3.5-5.1); SODIUM 139 MMOL/L (135-145)
[2024-08-03 03:37] LABS: ALANINE AMINOTRANSFERASE 28 U/L (12-78); ALBUMIN/GLOBULIN RATIO 0.5 (1.1-1.5); ALKALINE PHOSPHATASE 99 IU/L (46-116); ASPARTATE AMINO TRANSFERASE 13 U/L (10-37); BILIRUBIN,TOTAL 0.3 MG/DL (0.1-1.0); CALCIUM 8.3 MG/DL (8.5-10.1); eCRCL 33 ML/MIN; eGFR 28 ML/MIN
[2024-08-03] MEDS: LORazepam 0.5 MG tablet PO ONE (03:39)
[2024-08-03] MEDS: furosemide 10 MG/1 ML 10ml inj IV ONE (03:39)
[2024-08-03 03:44] LABS: PRO BRAIN NATRIURETIC PEPTIDE 12180 PG/ML (0-125)
[2024-08-03 03:45] LABS: ANION GAP 10 (8-16); CHLORIDE 105 MMOL/L (99-107)
[2024-08-03] MEDS ORDERED: iohexol 350MG/ML 100ml bottle IV ONE (04:22)
[2024-08-03 05:59] VITALS: BP 128/91; PULSE 84; RESP 21; TEMP 97
[2024-08-03 06:14] VITALS: BP 118/82; PULSE 83; RESP 23; TEMP 97.4
[2024-08-03 07:14] VITALS: BP 139/91; PULSE 81; RESP 16; TEMP 98
[2024-08-03 08:14] VITALS: BP 135/98; PULSE 88; RESP 22; TEMP 99.2
[2024-08-03] MEDS ORDERED: ASPI-1144 PO (10:01)
[2024-08-03] MEDS ORDERED: FURO40TA4 PO (10:01)
[2024-08-03] MEDS ORDERED: MAGN400T52 PO (10:01)
[2024-08-03] MEDS ORDERED: LABE200T8 PO (10:01)
[2024-08-03] MEDS ORDERED: POTA-206 PO (10:01)
[2024-08-03] MEDS: ondansetron/PF 4mg/2ml inj IV ONE (10:07)
[2024-08-03] MEDS: labetalol 100mg tablet PO ONE (10:51)
[2024-08-03] MEDS: LORazepam 1 MG tablet PO ONE (11:55)
[2024-08-03 16:26] VITALS: BP 135/83; PULSE 78; RESP 18; TEMP 98.3; O2SAT 98
== END 2024-08-03 16:29 | disposition short-term general hospital (02) ==
LOC: ER 02:16
DX: D64.9 Anemia, unspecified (principal); I31.39 Other pericardial effusion (noninflammatory); I50.9 Heart failure, unspecified; N18.9 Chronic kidney disease, unspecified; F31.9 Bipolar disorder, unspecified; F12.90 Cannabis use, unspecified, uncomplicated; Z88.8 Allergy status to other drugs, medicaments and biological substances; Z90.49 Acquired absence of other specified parts of digestive tract
CPT/HCPCS: 36415; 36430; 71045; 80053; 83880; 84145; 84484; 85025; 86885; 86900; 86901; 86920; 93005; 96374; 96375; 99285; J1940; J2405; P9016; Q9967; 71275; 74177

== ENCOUNTER 2024-08-26 08:13 | Emergency (ER) | payer MEDICARE, MEDICAID ==
[~2024-08-26] VITALS: Ht 162.6 cm; Wt 70.3 kg
[~2024-08-26 08:13] MED LIST changes: +ASPI-1144 PO; +FURO40TA4 PO; -HYDR100T12 PO; +LABE200T8 PO; +MAGN400T52 PO; -NIFE60TA2 PO; +POTA-206 PO; -PREN1TAB22 PO
[2024-08-26 08:23] VITALS: TEMP 97.9
[2024-08-26 08:46] LABS: BASOPHILS # (AUTO) 0.1 X10'3 (0-0.2); BASOPHILS % (AUTO) 0.6 % (0-1); EOSINOPHILS # (AUTO) 0.2 X10'3 (0-0.9); EOSINOPHILS % (AUTO) 1.6 % (0-6); HEMATOCRIT 35.6 % (35.0-45.0); HEMOGLOBIN 11.9 g/dl (12.0-16.0); LYMPHOCYTES # (AUTO) 1.3 X10'3 (1.1-4.8); LYMPHOCYTES % (AUTO) 10.3 % (21-51); MEAN CORPUSCULAR HEMOGLOBIN 27.4 PG (27.0-31.0); MEAN CORPUSCULAR HGB CONC 33.4 g/dL (33.0-36.5); MEAN CORPUSCULAR VOLUME 82.1 FL (78-98); MEAN PLATELET VOLUME 7.2 FL (7.4-10.4); MONOCYTES # (AUTO) 0.6 X10'3 (0-0.9); MONOCYTES % (AUTO) 4.6 % (2-12); NEUTROPHILS # (AUTO) 10.5 X10'3 (1.8-7.7); NEUTROPHILS % (AUTO) 82.9 % (42-75); PLATELET COUNT 289 X10'3 (140-440); RED BLOOD COUNT 4.34 X10'6 (4.20-5.60); RED CELL DISTRIBUTION WIDTH 19.8 % (11.5-14.5); WHITE BLOOD COUNT 12.6 X10'3 (4.5-11.0)
[2024-08-26 09:00] LABS: ANISOCYTOSIS 2+; MICROCYTOSIS 1+; PLATELET ESTIMATE NORMAL
[2024-08-26 09:01] LABS: POIKILOCYTOSIS FEW
[2024-08-26 09:04] LABS: ALBUMIN 3.2 G/DL (3.4-5.0); ANION GAP 7 (8-16); BLOOD UREA NITROGEN 30 MG/DL (7-18); BUN/CREATININE RATIO 16.3 (10.0-20.0); CALCIUM 8.7 MG/DL (8.5-10.1); CHLORIDE 105 MMOL/L (99-107); CREATININE 1.84 MG/DL (0.40-0.90); GLUCOSE 117 MG/DL (70-104); POTASSIUM 3.8 MMOL/L (3.5-5.1); PRO BRAIN NATRIURETIC PEPTIDE 919 PG/ML (0-125); SODIUM 138 MMOL/L (135-145); TOTAL CARBON DIOXIDE 25.6 MMOL/L (24-32); eCRCL 36 ML/MIN; eGFR 31 ML/MIN
[2024-08-26] MEDS ORDERED: LORA-269 PO (09:20)
[2024-08-26] MEDS: LORazepam 1 MG tablet PO ONE (09:54)
[2024-08-26 09:58] VITALS: BP 133/83; PULSE 84; RESP 16; O2SAT 98
== END 2024-08-26 10:00 | disposition home or self-care (01) ==
LOC: ER 08:13
DX: R07.9 Chest pain, unspecified (principal); N18.9 Chronic kidney disease, unspecified; F31.9 Bipolar disorder, unspecified; F12.90 Cannabis use, unspecified, uncomplicated; Z88.8 Allergy status to other drugs, medicaments and biological substances; Z90.49 Acquired absence of other specified parts of digestive tract
CPT/HCPCS: 36415; 71045; 80048; 83735; 83880; 84145; 84484; 85008; 85025; 93005; 99285

== ENCOUNTER 2024-11-10 08:10 | Emergency (ER) | payer MEDICARE, MEDICAID ==
[~2024-11-10] VITALS: Ht 162.6 cm; Wt 72.0 kg
--- NOTE | 2024-11-10 08:19 | ELECTROCARDIOGRAPH REPORT ---
[facility] Test Date: 2024-11-10 Test Time: 08:16:44 Pat Name: ULISES DUCKWORTH Department: EMERGENCY ROOM Room: Gender: F Bus Assistant: PM : 1985 Requested By: MOE TRIPLETT Order Number: [id number] Reading MD: Dr. Jun Garcia Measurements Intervals [place] Rate: 71 P: 64 [place]: 149 QRS: 53 QRSD: 107 T: 114 QT: 424 QTc: 461 Interpretive Statements Sinus rhythm LVH with secondary repolarization abnormality Electronically Signed On 11-10-2024 18:22:[address] Jun Garcia Please click the below link to view image of tracing.
[2024-11-10] MEDS: LORazepam 1 MG tablet PO ONE (08:44)
--- NOTE | 2024-11-10 08:48 | RADIOLOGY REPORT ---
CHEST RADIOGRAPH Indication: CP Technique: Single frontal view of the chest was obtained Comparison: None FINDINGS: The cardiac silhouette is unremarkable. The lungs demonstrate no pulmonary airspace consolidation. Th e pulmonary vasculature is unremarkable. Small right pleural effusion. There is no pneumothorax. Med maryann sternotomy wires. IMPRESSION: Small right pleural effusion
--- NOTE | 2024-11-10 08:51 | Physician Documentation ---
History of Present Illness ~ Chief Complaint: Chest Pain Stated Complaint: WEAKNESS Time Seen by MD: 08:37 OK to notify your PCP?: Yes Primary Medical Doctor: IMANI Mode of Arrival: EMS HPI 39-year-old female patient with a history of severe preeclampsia few months back, congestive heart failure, CKD stage IIIB, hypertension, aortic valve replacement at [facility], recent history of pericardial effusion treated with furosemide was brought to the emergency room by ambulance because she is having chest discomfort chest heaviness and interactive heartbeat that has been going on since when she woke up this morning. She told me that it feels like her heart is beating out of the chest and erratic. A little nausea earlier but no vomiting. She told me that she probably over works yesterday. Patient does not have any shortness of breath. Medication Reconciliation Allergies: Coded Allergies: FEDERICO Inhibitors (Verified Adverse Reaction, Unknown, 11/10/24) Beta-Blockers (Beta-Adrenergic Bloc (Verified Adverse Reaction, Unknown, 11/10/24) magnesium (Verified Adverse Reaction, Unknown, 11/10/24) PATIENT STATES MAG MAKES HER MORE SHORT OF BREATH, REFUSING AT THIS TIME. Scheduled Aspirin (Children's Aspirin), 1 TAB PO DAILY, (Reported) Furosemide (Furosemide), 1 TAB PO DAILY, (Reported) Isosorbide Dinitrate (Isosorbide Dinitrate), 1 TAB PO BID Labetalol Hcl (Normodyne), 1 TAB PO BID, (Reported) Lorazepam (Ativan), 1 TAB PO Q8H Magnesium Oxide (Magnesium Oxide), 1 TAB PO BID, (Reported) Nifedipine (Nifedipine Er), 1 TAB PO DAILY, (Reported) Potassium Chloride (K-Dur), 1 TAB PO DAILY, (Reported) Rivaroxaban (Xarelto), 1 TAB PO DAILY, (Reported) Scheduled PRN Lorazepam (Ativan), 1 TAB PO DAILY PRN for anxiety Lorazepam (Ativan), 1 TAB PO Q12H PRN PRN for anxiety Past Medical History Past Medical History: *CARDIOVASCULAR*, Chronic Kidney Disease, Renal Disease, Bipolar Past Surgical History: appendectomy, other Alcohol Use: None Drug Use: marijuana Lives In: Home Review of Systems ROS As stated above in the HPI, otherwise all systems are reviewed and negative. Physical Exam Vital Signs: Temperature: 98.0, Source: Oral, Heart Rate: 81, Respiratory Rate: 21, BP: 162/100, Pulse Oximetry: 100, Weight: 72.000 Oxygen Flow Rate: 0 Physical Exam Reviewed vital signs and the patient is afebrile and they are well within normal range. Const: Adult female not in acute cardiopulmonary distress, she is a bit anxious. Head: Atraumatic Eyes: Normal Conjunctiva ENT: Normal External Ears, Nose and Mouth. Moist mucous membranes Neck: Full range of motion. No meningismus Resp: Clear to auscultation bilaterally. Normal work of breathing Cardio: Regular rate and rhythm, no murmurs. Skin well perfused Abd: Soft, non-tender, non-distended. Normal bowel sounds. No rebound or guarding Skin: No petechiae or rashes. Warm and dry Back: No midline or flank tenderness Ext: No cyanosis, or edema Neuro: Awake and alert Psych: Normal Mood and Affect Progress Results/Orders Results/Orders Orders - MOE TRIPLETT MD Chest,Single View (11/10/24 08:20) Monitor (11/10/24 08:12) Saline Lock (11/10/24 08:12) Oxygen (11/10/24 08:12) Electrocardiogram (11/10/24 08:12) Hs Troponin I W Calculations (11/10/24 11:12) Completed Orders - MOE TRIPLETT MD Chest,Single View (11/10/24 08:20) Cbc/Diff (11/10/24 08:12) BMP (11/10/24 08:12) PBNP (11/10/24 08:12) Electrocardiogram (11/10/24 08:12) Hs Troponin I W Calculations (11/10/24 08:12) Hs Troponin I W Calculations (11/10/24 10:12) Lorazepam Tablet (Ativan Tablet) (11/10/24 08:40) Hcg, Ur Ql (11/10/24 10:08) Ua W/Microscopic, Cult If Ind (11/10/24 10:10) Laboratory Tests Test 11/10/24 08:41 11/10/24 10:06 11/10/24 10:10 White Blood Count 16.0 H Red Blood Count 5.00 Hemoglobin 13.9 Hematocrit 41.8 Mean Corpuscular Volume 83.7 Mean Corpuscular Hemoglobin 27.9 Mean Corpuscular Hemoglobin Concent 33.3 Red Cell Distribution Width 14.5 Platelet Count 295 Mean Platelet Volume 7.2 L Neutrophils (%) (Auto) 87.9 H Lymphocytes (%) (Auto) 7.9 L Monocytes (%) (Auto) 3.6 Eosinophils (%) (Auto) 0.3 Basophils (%) (Auto) 0.3 Neutrophils # (Auto) 14.1 H Lymphocytes # (Auto) 1.3 Monocytes # (Auto) 0.6 Eosinophils # (Auto) 0.1 Basophils # (Auto) 0.0 CBC Comment Sodium Level 139 Potassium Level 4.1 Chloride Level 106 Carbon Dioxide Level 20.4 L Anion Gap 13 Blood Urea Nitrogen 33 H Creatinine 1.92 H Estimated GFR/1.73 m2 29 BUN/Creatinine Ratio 17.2 Glucose Level 108 H Calcium Level 8.9 Troponin I High Sensitivity 10 8 Pro-B-Type Natriuretic Peptide 1593 H Albumin 3.6 Chemistry Comments Troponin I High Sens Percent Delta 20 Troponin I Hi Sens Absolute Change -2 Urine Specimen Description Non-specified Urine Color Straw Urine Clarity Slightly cloudy Urine pH 6.0 Urine Specific [place] 1.015 Urine Protein >=300 H Urine Glucose (UA) Negative Urine Ketones Negative Urine Occult Blood Trace-intact Urine Nitrite Negative Urine Bilirubin Negative Urine Urobilinogen 0.2 Urine Leukocyte Esterase Negative Urine RBC 0-2 Urine WBC 0-4 Urine Squamous Epithelial Cells Few Urine Triple Phosphate Crystals Urine Bacteria Few Urine Hyaline Casts 0-3 Urine Fine Granular Casts 0-3 Urine Culture Indicated Not ind Volume Urine Centrifuged 10 ml Urine HCG, Qualitative Negative Urine Comment Medical Decision Making Findings During the physical examination, the findings suggestive of acute life- threatening condition such as JVD, tracheal deviation, acidotic breathing, noisy stridorous breath sounds, pulses paradoxus, muffled heart sounds, unequal breath sounds, abdominal rigidity and rebound tenderness, focal neurological deficits, cool clammy skin, severe hypotension, severe tachycardia or bradycardia are absent. The patient told me that she is not needing Ativan for her mind but Ativan helps her heart and she has been having difficult times getting Ativan from her primary care doctor. Her EKG done at 08:16 hours shows according to my interpretation is normal sinus rhythm at a rate of 71. Normal axis. Normal intervals. LVH by voltage. No acute ischemic changes. Her WBC is elevated at 16 and H&H 13.9 and 41.8 and platelets 295. Sodium 139 potassium 4.1 chloride 106 bicarb 20.4 BUN 33 creatinine 1.92 and glucose 108. Her troponin the 1st one is 10 and 2nd is eight. The patient was given one dose of Ativan p.o. 1 mg and she is feeling much improved. Throughout the emergency room observation the patient's heart rate has been sinus rhythm without any aberrancy or arrhythmias. I explained the findings to the patient and we make shared decision-making that patient will go home and follow up with her traffic observer and cardiac surgeon from [facility] as well as her primary care doctor. DISCLAIMER Inadvertent spelling and grammatical errors,inadvertent software sales representative errors ,syntax errors, grammatical errors, and spelling errors are likely due to EMR/dictation software use and do not reflect on the overall quality of patient care. Note that the electronic time recorded on this note does not necessarily reflect the actual time of the patient encounter. Departure Disposition: 01 HOME / SELF CARE / HOMELESS Impression: Primary Impression: Nonspecific chest pain Condition: Stable Discharge Instructions: Nonspecific Chest Pain, Adult Additional Instructions: Thank you for coming to our Emergency Department today. Please do follow up with your primary care provider, your traffic observer, your cardiac surgeon from [facility]. Please ask your nurse or provider if you have questions about your care today and do not leave until all your questions have been answered. Please use any medications given as directed and follow-up with your doctor (or the doctor you were referred to) in the next 1-3 days. Your primary care doctor can help to coordinate outpatient specialty care and provide authorization for specialty referral as needed. If you do not have a primary care doctor you may follow up at a [facility]. You may also use motrin and tylenol as needed for fever and/or pain unless instructed otherwise by your provider or nurse. Indications for more urgent follow-up have been discussed, but you may return to the Emergency Department at ANY time for any worrisome or worsening symptoms. Referrals: NO PRIMARY CARE PROVIDER (PCP) Prescriptions Lorazepam (Ativan) 0.5 Mg Tablet 1 TAB PO Q12H PRN PRN for anxiety, #36 TAB 0 Refills Prov: MOE TRIPLETT MD 11/10/24 Signature Scribe Signature: None Attestation: My dictation MOE TRIPLETT MD Nov 10, 2024 08:51
[2024-11-10 08:55] LABS: BASOPHILS % (AUTO) 0.3 % (0-1); EOSINOPHILS # (AUTO) 0.1 X10'3 (0-0.9); EOSINOPHILS % (AUTO) 0.3 % (0-6); HEMATOCRIT 41.8 % (35.0-45.0); HEMOGLOBIN 13.9 g/dl (12.0-16.0); LYMPHOCYTES # (AUTO) 1.3 X10'3 (1.1-4.8); LYMPHOCYTES % (AUTO) 7.9 % (21-51); MEAN CORPUSCULAR HEMOGLOBIN 27.9 PG (27.0-31.0); MEAN CORPUSCULAR HGB CONC 33.3 g/dL (33.0-36.5); MEAN CORPUSCULAR VOLUME 83.7 FL (78-98); MEAN PLATELET VOLUME 7.2 FL (7.4-10.4); MONOCYTES # (AUTO) 0.6 X10'3 (0-0.9); MONOCYTES % (AUTO) 3.6 % (2-12); NEUTROPHILS # (AUTO) 14.1 X10'3 (1.8-7.7); NEUTROPHILS % (AUTO) 87.9 % (42-75); PLATELET COUNT 295 X10'3 (140-440); RED CELL DISTRIBUTION WIDTH 14.5 % (11.5-14.5)
[2024-11-10 09:25] LABS: PRO BRAIN NATRIURETIC PEPTIDE 1593 PG/ML (0-125)
[2024-11-10 09:35] LABS: ALBUMIN 3.6 G/DL (3.4-5.0); ANION GAP 13 (8-16); BLOOD UREA NITROGEN 33 MG/DL (7-18); BUN/CREATININE RATIO 17.2 (10.0-20.0); CALCIUM 8.9 MG/DL (8.5-10.1); CHLORIDE 106 MMOL/L (99-107); CREATININE 1.92 MG/DL (0.40-0.90); GLUCOSE 108 MG/DL (70-104); POTASSIUM 4.1 MMOL/L (3.5-5.1); SODIUM 139 MMOL/L (135-145); TOTAL CARBON DIOXIDE 20.4 MMOL/L (24-32); eCRCL 34 ML/MIN; eGFR 29 ML/MIN
[2024-11-10 10:29] LABS: BILIRUBIN,URINE NEGATIVE (Neg); CLARITY,URINE SLIGHTLY CLOUDY (Clear); COLOR,URINE STRAW (Yellow); GLUCOSE, URINE NEGATIVE (Neg); KETONES,URINE NEGATIVE (Neg); LEUKOCYTE ESTERASE ,URINE NEGATIVE (Neg); NITRITES, URINE NEGATIVE (Neg); OCCULT BLOOD,URINE TRACE-INTACT (Neg); PROTEIN,URINE >=300 mg/dl (Neg); UROBILINOGEN,URINE 0.2 E.U/dL (0.2-1.0)
[2024-11-10 10:30] LABS: URINE HCG NEGATIVE (NEG)
[2024-11-10 10:31] LABS: UA COLLECTION TYPE NON-SPECIFIED
[2024-11-10 10:36] LABS: HYALINE CASTS 0-3 /LPF (NEGATIVE)
[2024-11-10 10:40] LABS: RBC,URINE 0-2 /HPF (0-2); WBC,URINE 0-4 /HPF (0-4)
[2024-11-10 10:41] LABS: SQUAMOUS EPITHELIAL CELL,UR FEW /LPF (FEW)
[2024-11-10 10:55] LABS: BACTERIA,URINE FEW /HPF (Neg); FINE GRANULAR CAST 0-3 /LPF (NEGATIVE)
[2024-11-10] MEDS ORDERED: LORA-268 PO (11:53)
[2024-11-10 12:30] VITALS: PULSE 89
[2024-11-10 12:53] VITALS: BP 148/99; RESP 15; TEMP 98; O2SAT 99
== END 2024-11-10 12:55 | disposition home or self-care (01) ==
LOC: ER 08:11
DX: R07.89 Other chest pain (principal); I13.0 Hypertensive heart and chronic kidney disease with heart failure and stage 1 through stage 4 chronic kidney disease, or unspecified chronic kidney disease; I50.9 Heart failure, unspecified; N18.32 Chronic kidney disease, stage 3b; F31.9 Bipolar disorder, unspecified; F12.90 Cannabis use, unspecified, uncomplicated; Z90.49 Acquired absence of other specified parts of digestive tract; Z88.8 Allergy status to other drugs, medicaments and biological substances; Z79.899 Other long term (current) drug therapy
CPT/HCPCS: 36415; 71045; 80048; 81001; 81025; 83880; 84484; 85025; 93005; 99283; 99285

== ENCOUNTER 2024-11-13 15:23 | Emergency (ER) | payer MEDICARE, MEDICAID ==
[~2024-11-13] VITALS: Ht 162.6 cm; Wt 72.7 kg
[~2024-11-13 15:23] MED LIST changes: +LORA-268 PO
--- NOTE | 2024-11-13 15:42 | ELECTROCARDIOGRAPH REPORT ---
[facility] Test Date: 2024-11-13 Test Time: 15:40:01 Pat Name: ULISES DUCKWORTH Department: EMERGENCY ROOM Room: Gender: F Clinical Nursing Professor: DEBI : 1985 Requested By: ESTRADA OLGUIN Order Number: [id number] Reading MD: Dr. Jun Garcia Measurements Intervals [place] Rate: 81 P: 77 [place]: 148 QRS: 82 QRSD: 93 T: 0 QT: 370 QTc: 430 Interpretive Statements A-V dual-paced complexes w/ some inhibition No further analysis attempted due to paced rhythm Electronically Signed On 11-14-2024 10:24:[address] Jun Garcia Please click the below link to view image of tracing.
--- NOTE | 2024-11-13 16:13 | Physician Documentation ---
History of Present Illness ~ Chief Complaint: Chest Pain Stated Complaint: CHEST WALL PAIN Time Seen by MD: 16:28 OK to notify your PCP?: Yes Primary Medical Doctor: IMANI Source: patient Mode of Arrival: POV Exam Limitations: no limitations HPI 39-year-old female presents via EMS with BIBA for chest tightness and irregular heartbeat. She reports that any time she has Ativan it is able to calm her heart down within 20 minutes and she is requesting a dose. Recent open heart surgery in September to repair a 4 leaflet aortic valve done here. THIS PATIENT REPORTS CHEST HEAVINESS, AND A HEAVING SENSATION AT TIMES. DOES REPORT THAT THIS IS AN INTERMITTENT COMPLAINT. SHE ALSO ADDS THAT SHE HAS A 6-MONTH-OLD BABY IN HIS HAD POOR SLEEP RECENTLY SHE DENIES ANY CAFFEINE USE OR EXCESSIVE CAFFEINE USE. DENIES ANY ALCOHOL USE Day of Onset: Nov 13, 2024 Medication Reconciliation Allergies: Coded Allergies: FEDERICO Inhibitors (Verified Adverse Reaction, Unknown, 11/10/24) Beta-Blockers (Beta-Adrenergic Bloc (Verified Adverse Reaction, Unknown, 11/10/24) magnesium (Verified Adverse Reaction, Unknown, 11/10/24) PATIENT STATES MAG MAKES HER MORE SHORT OF BREATH, REFUSING AT THIS TIME. Scheduled Aspirin (Children's Aspirin), 1 TAB PO DAILY, (Reported) Furosemide (Furosemide), 1 TAB PO DAILY, (Reported) Isosorbide Dinitrate (Isosorbide Dinitrate), 1 TAB PO BID Labetalol Hcl (Normodyne), 1 TAB PO BID, (Reported) Lorazepam (Ativan), 1 TAB PO Q8H Magnesium Oxide (Magnesium Oxide), 1 TAB PO BID, (Reported) Nifedipine (Nifedipine Er), 1 TAB PO DAILY, (Reported) Potassium Chloride (K-Dur), 1 TAB PO DAILY, (Reported) Rivaroxaban (Xarelto), 1 TAB PO DAILY, (Reported) Scheduled PRN Lorazepam (Ativan), 1 TAB PO DAILY PRN for anxiety Lorazepam (Ativan), 1 TAB PO Q12H PRN PRN for anxiety Past Medical History Past Medical History: *CARDIOVASCULAR*, Chronic Kidney Disease, Renal Disease, Bipolar Past Surgical History: appendectomy, other Alcohol Use: None Drug Use: marijuana Lives In: Home Review of Systems All Other Systems at this time: Reviewed and Negative Physical Exam Vital Signs: RN Vital Signs have been reviewed: Yes, Temperature: 98.2, Source: Temporal, Heart Rate: 76, Respiratory Rate: 15, BP: 148/91, Pulse Oximetry: 98, Weight: 72.730 Pulse Oximetry Reflects: adequate oxygenation Physical Exam General: Alert, no distress. Respiratory: No respiratory distress, equal chest rise and fall. Chest: No accessory muscle use. Sternotomy scar, healing well. Cardiovascular: Regular rate and rhythm. Neurologic: Oriented x4. Psychiatric: Normal mood and affect. Skin: Normal color, warm and dry. Progress Results/Orders Results/Orders Completed Orders - VERO SWENSON NP Lorazepam Inj (Ativan Inj) (11/13/24 16:45) Vital Signs 11/13/24 15:36 Temp 98.2 Pulse 76 Resp 15 B/P (MAP) 148/91 Pulse Ox 98 Laboratory Tests Test 11/13/24 16:05 White Blood Count 10.1 Red Blood Count 4.76 Hemoglobin 13.5 Hematocrit 40.4 Mean Corpuscular Volume 84.9 Mean Corpuscular Hemoglobin 28.3 Mean Corpuscular Hemoglobin Concent 33.3 Red Cell Distribution Width 14.8 H Platelet Count 334 Mean Platelet Volume 7.4 Neutrophils (%) (Auto) 72.9 Lymphocytes (%) (Auto) 18.3 L Monocytes (%) (Auto) 5.5 Eosinophils (%) (Auto) 2.3 Basophils (%) (Auto) 1.0 Neutrophils # (Auto) 7.4 Lymphocytes # (Auto) 1.8 Monocytes # (Auto) 0.6 Eosinophils # (Auto) 0.2 Basophils # (Auto) 0.1 CBC Comment Sodium Level 135 Potassium Level 3.9 Chloride Level 102 Carbon Dioxide Level 20.5 L Anion Gap 13 Blood Urea Nitrogen 32 H Creatinine 1.99 H Estimated GFR/1.73 m2 28 BUN/Creatinine Ratio 16.1 Glucose Level 95 Calcium Level 8.6 Troponin I High Sensitivity 13 Albumin 3.3 L Chemistry Comments Medical Decision Making Findings I discussed at length with the patient that I think there is a large element of anxiety that is contributing to her reported episodes. I explained to her that Ativan may work for her but it is not a long-term solution. I talked to her about starting an SSRI which she was open to discussion/ultimately I gave her a 1 mg dose of Ativan IV to help with her symptoms. She has laboratory values that are comparable to her previous visits here in the ED really needs to follow up in the outpatient setting and see her lining printer and/or cardiovascular surgeon. For shared decision-making we agreed on with a on this plan Differential Dx:Considerations: Include: angina, aortic dissection, chest wall pain, cholelithiasis, CHF, costochondritis, esophageal reflux/spasm, gastritis, herpes zoster, myocardial infarction, pericarditis, pleuritis, pancreatitis, pneumonia, pneumothorax, pulmonary embolus, other Departure Disposition: 01 HOME / SELF CARE / HOMELESS Impression: Primary Impression: Chest pain Condition: Stable Discharge Instructions: Nonspecific Chest Pain, Adult Referrals: NO PRIMARY CARE PROVIDER (PCP) Additional Comment Medical Screen Exam This patient recieved a medical screening examination. After reviewing the individual's medical complaints with presenting symptoms and performing an appropriate physical examination, it was determined that no immediate life- threatening emergency medical condition is present. This individual is also not a women having contractions. Signature Scribe Signature: HY Attestation: Scribed for Vero Swenson Np by Vero Zambrano NP . 11/13/24 16:43 OSCAR JOHN Nov 13, 2024 16:13 VERO SWENSON NP Nov 13, 2024 16:43
[2024-11-13 16:25] LABS: BASOPHILS # (AUTO) 0.1 X10'3 (0-0.2); EOSINOPHILS # (AUTO) 0.2 X10'3 (0-0.9); EOSINOPHILS % (AUTO) 2.3 % (0-6); HEMATOCRIT 40.4 % (35.0-45.0); HEMOGLOBIN 13.5 g/dl (12.0-16.0); LYMPHOCYTES # (AUTO) 1.8 X10'3 (1.1-4.8); LYMPHOCYTES % (AUTO) 18.3 % (21-51); MEAN CORPUSCULAR HEMOGLOBIN 28.3 PG (27.0-31.0); MEAN CORPUSCULAR HGB CONC 33.3 g/dL (33.0-36.5); MEAN CORPUSCULAR VOLUME 84.9 FL (78-98); MEAN PLATELET VOLUME 7.4 FL (7.4-10.4); MONOCYTES # (AUTO) 0.6 X10'3 (0-0.9); MONOCYTES % (AUTO) 5.5 % (2-12); NEUTROPHILS # (AUTO) 7.4 X10'3 (1.8-7.7); NEUTROPHILS % (AUTO) 72.9 % (42-75); PLATELET COUNT 334 X10'3 (140-440); RED BLOOD COUNT 4.76 X10'6 (4.20-5.60); RED CELL DISTRIBUTION WIDTH 14.8 % (11.5-14.5); WHITE BLOOD COUNT 10.1 X10'3 (4.5-11.0)
--- NOTE | 2024-11-13 16:29 | RADIOLOGY REPORT ---
CHEST RADIOGRAPH Indication: CP Technique: Single frontal view of the chest was obtained COMPARISON: DI CHEST,SINGLE VIEW on DOS: 11/10/24, DI CHEST,SINGLE VIEW on DOS: 08/26/24, DI CHEST,SING LE VIEW on DOS: 08/03/24, DI CHEST,SINGLE VIEW on DOS: 07/06/24, DI CHEST,SINGLE VIEW on DOS: 06/24/24 FINDINGS: Lines and Tubes: Median sternotomy Lungs: Clear Pleura: No effusion. No pneumothorax. Cardiomediastinal contours: Unremarkable Bones: Unremarkable IMPRESSION: No acute disease.
[2024-11-13] MEDS ORDERED: LORazepam 2 mg/ml vial IV ONE (16:45)
[2024-11-13 16:46] LABS: ALBUMIN 3.3 G/DL (3.4-5.0); ANION GAP 13 (8-16); BLOOD UREA NITROGEN 32 MG/DL (7-18); BUN/CREATININE RATIO 16.1 (10.0-20.0); CALCIUM 8.6 MG/DL (8.5-10.1); CHLORIDE 102 MMOL/L (99-107); CREATININE 1.99 MG/DL (0.40-0.90); GLUCOSE 95 MG/DL (70-104); POTASSIUM 3.9 MMOL/L (3.5-5.1); SODIUM 135 MMOL/L (135-145); TOTAL CARBON DIOXIDE 20.5 MMOL/L (24-32); eCRCL 33 ML/MIN; eGFR 28 ML/MIN
[2024-11-13 17:21] LABS: PRO BRAIN NATRIURETIC PEPTIDE 632 PG/ML (0-125)
[2024-11-13] MEDS: LORazepam 1 MG tablet PO ONE (17:42)
[2024-11-13 17:54] VITALS: BP 142/85; PULSE 76; RESP 16; TEMP 98.2; O2SAT 99
== END 2024-11-13 18:04 | disposition home or self-care (01) ==
LOC: ER 15:24
DX: R07.89 Other chest pain (principal); N18.9 Chronic kidney disease, unspecified; F31.9 Bipolar disorder, unspecified; F12.90 Cannabis use, unspecified, uncomplicated; R06.02 Shortness of breath; Z90.49 Acquired absence of other specified parts of digestive tract
CPT/HCPCS: 36415; 71045; 80048; 83880; 84484; 85025; 93005; 99285

== ENCOUNTER 2025-02-18 04:37 | Emergency (ER) | payer MEDICARE, MEDICAID ==
[~2025-02-18] VITALS: Ht 162.6 cm; Wt 72.0 kg
[~2025-02-18 04:37] MED LIST changes: +ACET-812 PO; +ASPI-1071 PO; -ASPI-1144 PO; +ATOR20TA66 PO; +ESCI-8 PO; -FURO40TA4 PO; +GABA300C PO; -ISOS30TA10 PO; -LABE200T8 PO; -LORA-268 PO; -MAGN400T52 PO; -NIFE-128 PO; +NIFE90TA70 PO; +NITR0.4T51 SL; -POTA-206 PO; -RIVA20TA PO; +SPIR25TA5 PO
--- NOTE | 2025-02-18 04:44 | ELECTROCARDIOGRAPH REPORT ---
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 Kishore Batres Measurements Intervals [place] Rate: 67 P: 58 [place]: 150 QRS: 50 QRSD: 98 T: 104 QT: 423 QTc: 447 Interpretive Statements Sinus rhythm Probable LVH with secondary repol abnrm Electronically Signed On 02-18-2025 5:16:[address] Kishore Batres Please click the below link to view image of tracing.
[2025-02-18 05:01] VITALS: TEMP 98.2
--- NOTE | 2025-02-18 05:58 | RADIOLOGY REPORT ---
CHEST RADIOGRAPH Indication: CP Technique: Single frontal view of the chest was obtained Comparison: DI CHEST,SINGLE VIEW on DOS: 12/09/24, DI CHEST,SINGLE VIEW on DOS: 11/13/24, DI CHEST,SINGLE VIEW on DOS: 11/10/24 IMPRESSION: Heart appears normal in size. The lungs appear clear without focal airspace opacity, effusion, or pneumothorax
[2025-02-18 06:15] LABS: MEAN PLATELET VOLUME 7.8 FL (7.4-10.4); RED CELL DISTRIBUTION WIDTH 16.7 % (11.5-14.5)
[2025-02-18 06:16] LABS: CREATININE 1.88 MG/DL (0.40-0.90); PRO BRAIN NATRIURETIC PEPTIDE 1715 PG/ML (0-125); TOTAL CARBON DIOXIDE 21.9 MMOL/L (24-32); eCRCL 35 ML/MIN; eGFR 30 ML/MIN
--- NOTE | 2025-02-18 06:32 | Physician Documentation ---
History of Present Illness ~ Chief Complaint: Chest Pain Stated Complaint: CHEST HEAVINESS Time Seen by MD: 06:31 Primary Medical Doctor: [facility] Mode of Arrival: EMS HPI 39-year-old female, history of cardiac surgery, presenting with chest pain She tells me that her symptoms started this morning at around 2:00 a.m.. She reports feeling like her heart is racing and beating irregular. She reports pressure in her chest. She feels slightly short of breath. No fevers or chills. No productive cough. No abdominal pain, vomiting or diarrhea. No leg pain or swelling. She tells me she has a history of similar episodes in the past. She tells me that she has been told that this is anxiety, and that her testing is usually normal. She has been given Ativan in the past which usually resolves her symptoms. Medication Reconciliation Allergies: Coded Allergies: FEDERICO Inhibitors (Verified Adverse Reaction, Unknown, 11/10/24) Beta-Blockers (Beta-Adrenergic Bloc (Verified Adverse Reaction, Unknown, 11/10/24) magnesium (Verified Adverse Reaction, Unknown, 11/10/24) PATIENT STATES MAG MAKES HER MORE SHORT OF BREATH, REFUSING AT THIS TIME. Scheduled Aspirin (Ecotrin*), 1 TAB PO DAILY Atorvastatin Calcium (Atorvastatin Calcium), 20 MG PO HS Escitalopram Oxalate (Escitalopram Oxalate), 1 TAB PO DAILY Gabapentin (Neurontin), 1 CAP PO BID, (Reported) Nifedipine (Nifedipine ER), 1 TAB PO DAILY, (Reported) Spironolactone (Spironolactone), 25 MG PO DAILY, (Reported) Scheduled PRN Acetaminophen (Tylenol Extra Strength), 1 TABLET PO PRN PRN for pain, (Reported) Lorazepam (Ativan), 1 TAB PO Q12H PRN PRN for anxiety Lorazepam (Ativan), 1 MG PO DAILY PRN for anxiety Nitroglycerin SL* (Nitrostat SL*), 0.4 MG SL Q5MIN PRN for chest pain Past Medical History Past Medical History: *CARDIOVASCULAR*, Chronic Kidney Disease, Renal Disease, Bipolar Past Surgical History: appendectomy, other Alcohol Use: None Drug Use: marijuana Lives In: Home Review of Systems Constitutional: Denies: fever Cardiovascular: Reports: chest pain, palpitations Physical Exam Vital Signs: Temperature: 98.2, Source: Oral, Heart Rate: 61, Respiratory Rate: 18, BP: 133/82, Pulse Oximetry: 99, Weight: 72.000 Physical Exam General: This is a pleasant and nontoxic appearing young female who is sleeping when I enter the room Heart: Regular rate and rhythm, normal-appearing peripheral perfusion Lungs: Clear breath sounds bilateral, normal work of breathing, normal oxygen saturation on room air Abdomen: Soft, nondistended, nontender including in the epigastric region Extremities: Warm and well-perfused Neuro: Alert and oriented Psychiatric: Appears anxious but is cooperative with exam Progress Results/Orders Results/Orders Completed Orders - EVON JUDGE MD Lorazepam Tablet (Ativan Tablet) (02/18/25 06:40) Medications Received in ER Medications (Trade) Dose Ordered Sig/Trav Route PRN Reason Start Time Stop Time Status Last Admin Dose Admin (Ativan tablet) 1 mg ONCE ONCE PO 02/18/25 06:40 02/18/25 06:41 DC 02/18/25 06:54 1 MG Vital Signs 02/18/25 02/18/25 02/18/25 02/18/25 05:01 05:05 06:44 06:54 Temp 98.2 Pulse 61 69 Resp 19 18 17 16 B/P (MAP) 133/82 132/87 (102) Pulse Ox 99 98 02/18/25 09:31 Pulse 73 Resp 11 B/P (MAP) 143/85 Pulse Ox 100 Laboratory Tests Test 02/18/25 05:15 02/18/25 07:11 02/18/25 08:47 White Blood Count 7.8 Red Blood Count 4.05 L Hemoglobin 9.5 L Hematocrit 29.8 L Mean Corpuscular Volume 73.6 L Mean Corpuscular Hemoglobin 23.5 L Mean Corpuscular Hemoglobin Concent 31.9 L Red Cell Distribution Width 16.7 H Platelet Count 273 Mean Platelet Volume 7.8 Neutrophils (%) (Auto) 71.3 Lymphocytes (%) (Auto) 20.2 L Monocytes (%) (Auto) 6.0 Eosinophils (%) (Auto) 1.3 Basophils (%) (Auto) 1.2 H Neutrophils # (Auto) 5.6 Lymphocytes # (Auto) 1.6 Monocytes # (Auto) 0.5 Eosinophils # (Auto) 0.1 Basophils # (Auto) 0.1 CBC Comment Sodium Level 140 Potassium Level 4.2 Chloride Level 108 H Carbon Dioxide Level 21.9 L Anion Gap 10 Blood Urea Nitrogen 24 H Creatinine 1.88 H Estimated GFR/1.73 m2 30 BUN/Creatinine Ratio 12.8 Glucose Level 103 Calcium Level 8.6 Troponin I High Sensitivity 8 9 8 Pro-B-Type Natriuretic Peptide 1715 H Albumin 3.0 L Chemistry Comments Troponin I High Sens Percent Delta 12 11 Troponin I Hi Sens Absolute Change 1 -1 EKG/XRAY/CT/US/VASC/MRI EKG : Additional Comment I personally interpreted the EKG and this shows: Sinus rhythm, rate 67, no STEMI, large R-waves in the anterior leads Chest X-Ray : Additional Comments I personally interpreted the x-ray, and it shows: No focal consolidation, pulmonary edema, or pneumothorax Medical Decision Making Differential Dx:Considerations: Include: chest wall pain, CHF, costochondritis, myocardial infarction, pericarditis, pneumonia, pulmonary embolus Additional Information The patient presents with palpitations and chest discomfort. Per her own reported history, this always gets better with Ativan although she does not seem to think that it is related to anxiety. Her workup today does not show evidence of ACS, dysrhythmia, or other dangerous process. Chest x-ray unremarkable. She was given a dose of oral Ativan and on re-evaluation her symptoms had resolved. Overall, there appears to be some component of anxiety to her presentation. She will be discharged with a short course of p.r.n. emergency Ativan. She was encouraged to follow up with her pediatric dietician and primary care doctor for further evaluation and treatment. She is already in mental health treatment for possible anxiety. Return precautions given. Departure Time of Disposition: 09:22 Disposition: 01 HOME / SELF CARE / HOMELESS Impression: Primary Impression: Palpitations Condition: Improved Discharge Instructions: Managing Anxiety, Adult, Palpitations Referrals: NO PRIMARY CARE PROVIDER (PCP) Prescriptions Lorazepam (Ativan) 1 Mg Tablet 1 MG PO DAILY PRN for anxiety for 30 Days, #10 TAB Prov: EVON JUDGE MD 02/18/25 Education Educated: Patient Educated regarding: diagnosis, treatment, need for follow up Signature Scribe Signature: adrian Attestation: EVON Guzman MD Feb 18, 2025 06:32
[2025-02-18] MEDS ORDERED: ATI1T PO (09:23)
[2025-02-18 09:31] VITALS: BP 143/85; PULSE 73; RESP 11; O2SAT 100
== END 2025-02-18 09:34 | disposition home or self-care (01) ==
LOC: ER 04:38
DX: R00.2 Palpitations (principal); F31.9 Bipolar disorder, unspecified; N18.9 Chronic kidney disease, unspecified; F12.90 Cannabis use, unspecified, uncomplicated; Z90.49 Acquired absence of other specified parts of digestive tract; Z88.8 Allergy status to other drugs, medicaments and biological substances; Z79.82 Long term (current) use of aspirin; Z79.899 Other long term (current) drug therapy
CPT/HCPCS: 36415; 71045; 80048; 83880; 84484; 85025; 93005; 99285

== ENCOUNTER 2025-03-25 20:25 | Emergency (ER) | payer MEDICARE, MEDICAID ==
[~2025-03-25] VITALS: Ht 172.7 cm; Wt 75.0 kg
[~2025-03-25 20:25] MED LIST changes: +ATI1T PO
--- NOTE | 2025-03-25 20:39 | ELECTROCARDIOGRAPH REPORT ---
[facility] Test Date: 2025-03-25 Test Time: 20:37:49 Pat Name: ULISES DUCKWORTH Department: EMERGENCY ROOM Room: Gender: F Third Miller: JOHN : 1985 Requested By: PAT FINCH Order Number: [id number] Reading MD: Dr. KENDALL Mcmanus Measurements Intervals [place] Rate: 68 P: 74 CT: 159 QRS: 71 QRSD: 94 T: 92 QT: 399 QTc: 425 Interpretive Statements Sinus rhythm Probable left atrial enlargement Left ventricular hypertrophy Nonspecific T abnormalities, lateral leads Electronically Signed On 03-28-2025 19:22:[address] KENDALL Mcmanus Please click the below link to view image of tracing.
[2025-03-25 20:48] LABS: MEAN PLATELET VOLUME 7.7 FL (7.4-10.4); RED CELL DISTRIBUTION WIDTH 18.1 % (11.5-14.5)
--- NOTE | 2025-03-25 21:04 | RADIOLOGY REPORT ---
EXAM: DI CHEST,SINGLE VIEW CLINICAL HISTORY: CP TECHNIQUE: Single PA view of the chest WID: COMPARISON: DI CHEST,SINGLE VIEW on DOS: 02/18/25 FINDINGS: Lines and tubes: Prior median sternotomy Chest: The heart size and pulmonary vasculature is within normal limits. Calcified plaque projects over the aortic arch. No pleural effusion, pneumothorax, or consolidation. The osseous structures are grossly intact. Multilevel thoracic spondylosis. IMPRESSION: 1. No acute cardiopulmonary abnormality.
[2025-03-25 21:12] LABS: CREATININE 2.22 MG/DL (0.40-0.90); PRO BRAIN NATRIURETIC PEPTIDE 1061 PG/ML (0-125); TOTAL CARBON DIOXIDE 24.4 MMOL/L (24-32); eCRCL 35 ML/MIN; eGFR 25 ML/MIN
--- NOTE | 2025-03-26 00:18 | Physician Documentation ---
History of Present Illness General Chief Complaint: Palpitations Stated Complaint: ERRATIC HR Time Seen by MD: 00:19 Primary Medical Doctor: [facility] History of Present Illness Initial Comments 39-year-old female presents to the emergency room with a complaint of palpitations and anxiety she states she has multiple episodes a week of similar symptoms. She states that the only thing that works for his Ativan in the Ativan goes straight to heart relaxants or palpitations. 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 The patient has tried multiple other medications for anxiety with no improvement. The patient states she has had symptoms over last several days of worsening anxiety and palpitations. She denies any chest pain. Patient's symptoms are moderate and persistent Medication Reconciliation Allergies: Coded Allergies: FEDERICO Inhibitors (Verified Adverse Reaction, Unknown, 11/10/24) Beta-Blockers (Beta-Adrenergic Bloc (Verified Adverse Reaction, Unknown, 11/10/24) magnesium (Verified Adverse Reaction, Unknown, 11/10/24) PATIENT STATES MAG MAKES HER MORE SHORT OF BREATH, REFUSING AT THIS TIME. Scheduled Aspirin (Ecotrin*), 1 TAB PO DAILY Atorvastatin Calcium (Atorvastatin Calcium), 20 MG PO HS Escitalopram Oxalate (Escitalopram Oxalate), 1 TAB PO DAILY Gabapentin (Neurontin), 1 CAP PO BID, (Reported) Nifedipine (Nifedipine ER), 1 TAB PO DAILY, (Reported) Spironolactone (Spironolactone), 25 MG PO DAILY, (Reported) Scheduled PRN Acetaminophen (Tylenol Extra Strength), 1 TABLET PO PRN PRN for pain, (Reported) Lorazepam (Ativan), 1 TAB PO Q12H PRN PRN for anxiety Lorazepam (Ativan), 1 MG PO DAILY PRN for anxiety Nitroglycerin SL* (Nitrostat SL*), 0.4 MG SL Q5MIN PRN for chest pain Past Medical History Past Medical History: *CARDIOVASCULAR*, Chronic Kidney Disease, Renal Disease, Bipolar Past Surgical History: appendectomy, other Alcohol Use: None Drug Use: marijuana Lives In: Home Physical Exam Physical Exam Vital Signs: Temperature: 97.2, Source: Temporal, Heart Rate: 77, Respiratory Rate: 18, BP: 151/98, Pulse Oximetry: 100, Weight: 75.000 Oxygen Flow Rate: 0 Physical Exam VITALS: Reviewed and as above. GENERAL: Alert, no apparent distress. HEENT: Normocephalic, atraumatic, PERRL, EOMI, dry mucosa, no erythema RESPIRATORY: Lungs clear, normal breath sounds, no respiratory distress. CHEST: No accessory muscle use, no retractions CV: Regular rate, rhythm, no edema, no murmur, No: JVD GI: Soft, non-tender, bowels sounds present, no rebound, guarding, or rigidity BACK: No CVA tenderness, or swelling MUSCULOSKELETAL: No deformities, no edema SKIN: Warm and dry, no rash NEURO: Oriented x4, No motor or sensory deficit PSYCH: Anxious tearful affect Progress Results/Orders Results/Orders Orders - OHPAT GROVES MD Chest,Single View (03/25/25 20:52) Monitor (03/25/25 20:28) Saline Lock (03/25/25 20:28) Oxygen (03/25/25 20:28) Lorazepam Tablet (Ativan Tablet) (03/26/25 00:50) Completed Orders - PAT FINCH MD Chest,Single View (03/25/25 20:52) Cbc/Diff (03/25/25 20:28) BMP (03/25/25 20:28) PBNP (03/25/25 20:28) Electrocardiogram (03/25/25 20:28) Hs Troponin I W Calculations (03/25/25 20:28) Hs Troponin I W Calculations (03/25/25 22:28) Vital Signs 03/25/25 20:35 Temp 97.2 Pulse 77 Resp 18 B/P (MAP) 151/98 Pulse Ox 100 O2 Flow Rate 0 Laboratory Tests Test 03/25/25 20:38 03/25/25 22:27 White Blood Count 8.0 Red Blood Count 4.57 Hemoglobin 10.5 L Hematocrit 33.5 L Mean Corpuscular Volume 73.4 L Mean Corpuscular Hemoglobin 22.9 L Mean Corpuscular Hemoglobin Concent 31.2 L Red Cell Distribution Width 18.1 H Platelet Count 325 Mean Platelet Volume 7.7 Neutrophils (%) (Auto) 56.8 Lymphocytes (%) (Auto) 33.7 Monocytes (%) (Auto) 5.4 Eosinophils (%) (Auto) 3.0 Basophils (%) (Auto) 1.1 H Neutrophils # (Auto) 4.5 Lymphocytes # (Auto) 2.7 Monocytes # (Auto) 0.4 Eosinophils # (Auto) 0.2 Basophils # (Auto) 0.1 CBC Comment Sodium Level 138 Potassium Level 3.9 Chloride Level 106 Carbon Dioxide Level 24.4 Anion Gap 8 Blood Urea Nitrogen 30 H Creatinine 2.22 H Estimated GFR/1.73 m2 25 BUN/Creatinine Ratio 13.5 Glucose Level 99 Calcium Level 8.7 Troponin I High Sensitivity 9 9 Pro-B-Type Natriuretic Peptide 1061 H Albumin 3.6 Chemistry Comments Troponin I High Sens Percent Delta 0 Troponin I Hi Sens Absolute Change 0 Medical Decision Making Findings The patient is a 39-year-old female with a significant anxiety recently had cardiac surgery she is here today complaining of a sensation of her heart beating heavily in her chest which she states predates her recent surgery in his only responded the Ativan. The patient's prior hospitalizations were reviewed her imaging was reviewed her EKG was nonischemic, the patient's labs were unremarkable the patient was given a dose of Ativan she will be given a short course of Ativan as an outpatient the patient will was discharged. The patient's prior hospitalizations were reviewed. Her pulse oximetry was interpreted as normal and adequate the patient's night monitor was interpreted as a sinus rhythm the patient's EKG was interpreted as a sinus rhythm with normal axis and LVH with nonspecific ST-T abnormalities the heart rate was 68 the EKG was interpreted at 8:40 p.m.. The patient's chest x-ray was independently interpreted by me as showing a normal cardiac silhouette normal mediastinum sternal wires were present and normal otherwise normal bony structures. I interpreted the chest x-ray has a normal x-ray I have also reviewed the radiologist's interpretation Departure Time of Disposition: 00:51 Disposition: 01 HOME / SELF CARE / HOMELESS Impression: Primary Impression: Palpitations Additional Impression: Anxiety Discharge Instructions: Palpitations, [id number] Referrals: NO PRIMARY CARE PROVIDER (PCP) PAT FINCH MD Mar 26, 2025 00:18
[2025-03-26] MEDS ORDERED: LORA-269 PO (00:53)
[2025-03-26 00:56] VITALS: BP 150/89; PULSE 73; RESP 14; O2SAT 99
[2025-03-26 01:09] VITALS: TEMP 97.2
== END 2025-03-26 01:15 | disposition home or self-care (01) ==
LOC: ER 20:26
DX: R00.2 Palpitations (principal); F41.9 Anxiety disorder, unspecified; F12.90 Cannabis use, unspecified, uncomplicated; F31.9 Bipolar disorder, unspecified; N18.9 Chronic kidney disease, unspecified; Z90.49 Acquired absence of other specified parts of digestive tract; Z79.899 Other long term (current) drug therapy
CPT/HCPCS: 36415; 71045; 80048; 83880; 84484; 85025; 93005; 99285